=== PATIENT | male | born 1985 | race Caucasian/White ===

== ENCOUNTER 2017-02-26 10:20 | Emergency (ER) | payer MEDICAID ==
[~2017-02-26] VITALS: Ht 170.2 cm; Wt 77.0 kg
[2017-02-26 10:23] VITALS: Ht 170.2 cm; Wt 77.0 kg
[2017-02-26] MEDS ORDERED: IBUP-1542 PO (11:47)
[2017-02-26] MEDS ORDERED: IBUPROFEN 600 MG TAB PO ONE (12:00)
[2017-02-26 12:20] VITALS: BP 145/75; PULSE 80; RESP 18; TEMP 98
--- NOTE | 2017-02-26 17:24 | ERD ---
ER Documentation Chief Complaint Date/Time DATE: 02/26/17 TIME: 17:10 Chief Complaint rt elbow pain x 1 week , no trauma HPI This is a 31-year-old male with a medical history of CHF who presents to the ED with right arm pain for 1 week associated with decreased range of motion. Denies any trauma. Denies fever, numbness, tingling, cough, chest pain , shortness of breath. Patient did not take any medications for symptom relief. No recent sick contacts or foreign travel. ROS All systems reviewed and are negative except as per history of present illness. Medications Home Meds Active Scripts Ibuprofen* (Motrin*) 600 Mg Tab, 600 MG PO Q6, #30 TAB Prov:CHANELL CEVALLOS 02/26/17 Allergies Allergies: Coded Allergies: No Known Allergy (Unverified , 02/26/17) PMhx/Soc Medical and Surgical Hx: pt denies Surgical Hx Hx Cardiac Disorders: Yes (HEART FAILURE) Hx Alcohol Use: No Hx Substance Use: No Hx Tobacco Use: No Smoking Status: Former smoker Physical Exam Vitals Vital Signs Date Time Temp Pulse Resp B/P Pulse Ox O2 Delivery O2 Flow Rate FiO2 02/26/17 12:20 98.0 80 18 145/75 100 Room Air 02/26/17 10:23 97.3 110 18 172/89 99 Physical Exam Physical Exam CONST: Well-developed, well-nourished, in no acute distress. Nontoxic in appearance. HEENT: Atraumatic. Normal conjunctiva. EOM intact. TM intact. External ear is normal. Clear oropharnyx without erythema. No uvular deviation. Moist mucous membranes. Supple neck. No meningismus. No submandibular induration. RESP: Clear to auscultation bilaterally. No wheezing. CARDIO: Regular rate and rhythm, no murmurs. ABD: Soft, non tender, non distended. Normal bowel sounds. No McBurney's point tenderness. No guarding or rigidity. No peritoneal signs. SKIN: No rashes, induration or erythema on the right forearm. BACK: No midline or flank tenderness. EXT: Tenderness on the lateral proximal right forearm. Decreased right hand flexion, wrist flexion and elbow ROM due to pain. no cyanosis or edema. Distal pulses equal and bilateral. NEURO: Awake and alert, appropriate for age. Normal speech. Steady gait. Results 24 hrs Current Medications Medications (Trade) Dose Ordered Sig/Mic Route PRN Reason Start Time Stop Time Status Last Admin Dose Admin Ibuprofen (Motrin) 600 mg ONCE ONCE PO 02/26/17 12:00 02/26/17 12:01 DC 02/26/17 11:53 Procedures/MDM EMERGENCY DEPARTMENT COURSE/MEDICAL DECISION MAKING This is a 31-year-old male who comes to the emergency room secondary to complaints of nontraumatic right forearm pain 1 week. Patient is afebrile and appears nontoxic. I believe a radiographic study is unnecessary because there is no involved trauma. Physical exam shows decreased right finger and wrist flexion and elbow ROM. Skin assessment is normal. I believe the physical findings might suggest tendonitis and I will NSAIDS and pt needs a medical program specialist referral. My primary diagnosis is tendinitis. Secondary diagnosis right arm pain Differential diagnoses considered but not limited to fracture, foreign body, cellulitis, bursitis, arthritis. Pt is hemodynamically stable upon reassessment. There are no new complaints during the ED course. The patient was discharged for outpatient management with a prescription for ibuprofen. The patient was instructed to see an medical program specialist and a referral list was given. The patient was advised to followup with their PMD in 1 -2 days and to return to the Emergency Department if there are any new or worsening symptoms. The patient understood and agreed with the diagnosis, treatment and plan. Patient is stable for discharge at this time. Departure Diagnosis: Primary Impression: Tendonitis Additional Impression: Right arm pain Condition: Stable Patient Instructions: Tendonitis Referrals: [facility] Usted se clay hecho un examen mdico de control que le indica que no est en torrie condicin que requiera tratamiento urgente en el Departamento de Emergencia. Un estudio ms profundo y el tratamiento de ureña condicin pueden esperar sin ningn riesgo hasta que usted sea atendida/o en el consultorio de ureña mdico o torrie cl alicia. Es responsabilidad suya arreglar torrie kaushal para el seguimiento del inocencio. MANEJO DE CONDICIONES NO URGENTES EN EL FUTURO 1) Si usted tiene un mdico de atencin primaria: Usted debera llamar a ureña mdico de atencin primaria antes de venir al departamento de emergencia. Despus de las horas de consultorio, ureña doctor o ureña asociado/a est disponible por telfono. El mdico o enfermero de padmini en el servicio telefnico puede asesorarle por shira medio para atender el problema, o inocencio contrario se puede programar torrie kaushal. 2) Si usted no tiene un mdico de atencin primaria: Llame al mdico o clnica de referencia que aparece abajo [place] las horas de consultorio para hacer torrie kaushal para que le vean. CLINICAS: [place] [address] [phone] [facility] [phone] [place] [address] [phone] [place] [address] [phone] [place] [address] [phone] [place] [phone] [facility] Urgent Care 7 a.m.- 11 p.m. Every Day of the Week NO APPOINTMENT OR AUTHORIZATION NEEDED Additional Instructions: aplicar hielo sobre la maciel afectada seguimiento con un especialista en ortopedia. Llame a ureña mdico de atencin primaria maana para hacer torrie kaushal [place] los pr ximos richards 1-2. Volver al Departamento de la emergencia inmediatamente si tiene cualquier s ntoma nuevo o que empeora. [place] todos los medicamentos bibiana lo indique. CHANELL CEVALLOS February 26, 2017 17:23
== END 2017-02-26 12:21 | disposition home or self-care (01) ==
LOC: FTE 10:20
DX: M77.9 Enthesopathy, unspecified (principal); M79.601 Pain in right arm; I50.9 Heart failure, unspecified; Z87.891 Personal history of nicotine dependence
CPT/HCPCS: 99283

== ENCOUNTER 2017-10-21 20:11 | Emergency (ER) | END 2017-10-22 17:50 | disposition home or self-care (01) ==

== ENCOUNTER 2017-11-04 10:35 | Emergency (ER) | END 2017-11-04 20:20 | disposition home or self-care (01) ==

== ENCOUNTER 2017-11-06 13:10 | Inpatient (IN) | END 2017-11-09 12:51 | disposition home or self-care (01) | DRG 152 ==

== ENCOUNTER 2018-08-14 19:32 | Emergency (ER) | END 2018-08-15 00:17 | disposition home or self-care (01) ==

== ENCOUNTER 2018-09-17 14:55 | Emergency (ER) | END 2018-09-17 17:06 | disposition home or self-care (01) ==

== ENCOUNTER 2018-10-25 21:49 | Emergency (ER) | payer MEDICAID ==
[~2018-10-25] VITALS: Wt 79.0 kg
[~2018-10-25 21:49] MED LIST: ACET500T98 PO; BENA20TA4 PO; CARV25TA79 PO; D-ME118S24 PO; FURO40TA4 PO
[2018-10-25] MEDS ORDERED: ALBUTEROL 0.083% (NEB) 2.5 MG/3 ML AMP NEB STA (23:49)
[2018-10-25] MEDS ORDERED: IPRATROPIUM (NEB) 0.5 MG/2.5 ML AMP NEB STA (23:49)
--- NOTE | 2018-10-26 00:11 | ERD ---
ER Documentation Chief Complaint Chief Complaint SOB, CONGESTION X'S 5 DAYS HPI This is a 33-year-old male with a history of congestive heart failure who presents ED for cough and flulike symptoms for the past 5 days. Patient admits to subjective fevers, runny nose, cough with green sputum production and shortness of breath. Denies chills, ear pain, sore throat, chest pain, trouble breathing, nausea, vomiting, diarrhea, constipation. 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 Patient states that he has not used methamphetamine in over a year. Patient is unsure what his ejection fraction is. Patient states that he has a appointment scheduled with his systems integration advisor at all of the in the next couple weeks. Denies leg swelling. ROS All systems reviewed and are negative except as per history of present illness. Medications Home Meds Active Scripts Dextromethorphan Hb-Promethazine Hcl* (Promethazine DM* Syrup) 473 Ml Syrup, 5 ML PO Q6 PRN for COUGH for 5 Days, ML Prov:KAYLEE GILLIS PA-C 10/26/18 Levofloxacin* (Levaquin*) 750 Mg Tablet, 750 MG PO DAILY for 5 Days, TAB Prov:KAYLEE GILLIS PA-C 10/26/18 D-Methorphan Hb/P-Epd HCl/Bpm (Aqclcrsrmt-Djwmouvlktr-Db Syr) 118 Ml Syrup, 5 ML PO Q4 PRN for COUGH, #1 BOTTLE Prov:AUDIE PUGH DO 09/17/18 Acetaminophen (Tylenol) 500 Mg Tab, 500 MG PO Q6 for fever/pain for 30 Days, TAB Prov:AUDIE PUGH DO 09/17/18 Reported Medications Carvedilol* (Carvedilol*) 25 Mg Tablet, 25 MG PO BID, #60 TAB 08/14/18 Furosemide* (Furosemide*) 40 Mg Tablet, 40 MG PO DAILY, TAB 08/14/18 Benazepril Hcl* (Benazepril Hcl*) 20 Mg Tablet, 20 MG PO DAILY, #30 TAB 08/14/18 Allergies Allergies: Coded Allergies: No Known Allergy (Unverified , 08/14/18) PMhx/Soc History of Surgery: No Anesthesia Reaction: No Hx Neurological Disorder: No Hx Respiratory Disorders: Yes (Bronchitis) Hx Cardiac Disorders: Yes (CHF, HTN) Hx Psychiatric Problems: No Hx Miscellaneous Medical Probl: Yes (inguinal hernia) Hx Alcohol Use: Yes (occasionally) Hx Substance Use: Yes (ex-meth used,quit 2012) Hx Tobacco Use: Yes (quit 2003) Smoking Status: Former smoker FmHx Family History: No diabetes Physical Exam Vitals Vital Signs Date Temp Pulse Resp B/P (MAP) Pulse Ox O2 O2 Flow FiO2 Time Delivery Rate 10/26/18 98.8 109 18 140/88 99 Room Air 01:43 (105) 10/26/18 112 26 98 21 00:10 10/26/18 Simple 00:00 Mask 10/25/18 97.2 121 18 170/97 100 21:53 (121) Physical Exam Physical Exam Vitals signs: Reviewed by me. General: Well developed, well nourished, in no acute distress. Patient is awake and alert. Head: Normocephalic, atraumatic. Eyes: Normal conjunctiva, Pupils PERRLA, EOM intact grossly ENT: Pharynx is clear, Moist mucous membranes, external ears, nose and mouth normal Neck: Supple, no masses, lymphadenopathy or JVD Respiratory: Coarse breath sounds in anterior upper chest, otherwise clear to auscultation bilaterally with no wheezing, rhonchi, rales, no distress Cardiovascular: RRR, no murmurs, rubs, or gallops MSK: No edema, no unilateral swelling, 5/5 strength Back: No midline tenderness. No flank tenderness Neurologic: Alert and oriented, moving all extremities, normal speech, no focal weakness, no cerebellar signs. Normal mentation Skin: warm and dry, No rash Psych: Normal mood Results 24 hrs Current Medications Medications Dose Sig/Mic Start Time Status Last (Trade) Ordered Route PRN Stop Time Admin Dose Reason Admin Albuterol 5 mg ONCE STAT 10/25/18 DC 10/26/18 (Proventil NEB 23:49 10/25/18 00:09 0.083% (Neb)) 23:50 Ipratropium 0.5 mg ONCE STAT 10/25/18 DC 10/26/18 Guinda NEB 23:49 10/25/18 00:09 (Atrovent 23:50 0.02% (Neb)) Procedures/MDM EKG, MONITORS, & DIAGNOSTIC IMAGING: [place] [id number] Radiology Main Line: [phone] DIAGNOSTIC IMAGING REPORT Patient: TESS KIM : 1985 Age: 33 Sex: M MR #: [id number] DOS: 10/25/18 2349 Ordering MD: KAYLEE GILLIS PA-C Location: [facility] Room/Bed: PROCEDURE: XR Chest. CLINICAL INDICATION: Asthma exacerbation. TECHNIQUE: Single portable view of the chest was obtained COMPARISON: DR SEE 09/17/2018 FINDINGS: Stable enlargement of the cardiac silhouette. Central pulmonary vessels are enlarged and there are increased interstitial lung markings in both lower lungs, right more than left. This has increased compared to the prior study. There is no focal airspace consolidation or evidence of pulmonary vascular congestion. There is no pleural effusion or pneumothorax. The visualized osseous structures and soft tissues are unremarkable. IMPRESSION: 1. Increased interstitial lung markings at the lower aspects of the lungs bilaterally along with enlarged central pulmonary vessels could represent interstitial edema. 2. Marked cardiomegaly is unchanged from prior studies. RPTAT: HEUY. Physician margarito Date Time Electronically viewed and signed by melissa lama Physician on 10/26/2018 01:02 ry/ CC: KAYLEE GILLIS PA-C [phone] PROCEDURES: influenza negative ER COURSE: The patient was given breathing treatment in the ED The medication was well tolerated and the patient reports improvement in symptoms. The patient was stable throughout ED course. I kept the patient and/or family informed of laboratory and diagnostic imaging results throughout the emergency room course. The patient was promptly evaluated and a treatment plan was devised based on H&P and other data. This plan was discussed with the patient who agreed and had no further questions or concerns prior to discharge. MEDICAL DECISION MAKING: This is a 33-year-old male with a history of congestive heart failure who presents ED with complaints of cough for the past 2 days. Differential diagnosi s includes but is not limited to CHF exacerbation, upper respiratory infection, pneumonia, sepsis, bronchitis, among others. On examination there is some coarse breath sounds heard in the anterior upper lungs but is otherwise unremarkable. Patient was given a breathing treatment in the ED and reports feeling better. Chest x-ray is unremarkable for pneumonia. And on physical exa m there is no extremity edema, elevated JVD to suggest CHF exacerbation. Influenza is negative. Patient's symptoms are most consistent with an acute bronchitis. Patient will be sent home with antibiotics and cough medication. Patient has an appointment with his systems integration advisor next couple weeks. At this time there is no evidence of pulmonary emergency. Vitals are stable patient can be managed close outpatient follow-up. Advised patient to return to ED with any worsening symptoms. Discussed case with overseeing physician Dr. KWOK AND HE AGREES THAT patient can be managed with close outpatient follow up DISPOSITION PLAN: We discussed follow up with the patient's primary care doctor within 24 to 48 hours. Patient counseled regarding my diagnostic impression and care plan. Prior to discharge all questions answered. Pt agrees with treatment plan and understands strict return precautions. Precautionary instructions provided including instructions to return to the ER if not improving or for any worsening or changing symptoms or concerns. SPECIALIST FOLLOW UP RECOMMENDED: None Patient has been advised to follow up with primary care in 1-2 days. Disclaimer: Inadvertent spelling and grammatical errors are likely due to EHR/dictation software use and do not reflect on the overall quality of patient care. Also, please note that the electronic time recorded on this note does not necessarily reflect the actual time of the patient encounter. Departure Diagnosis: Primary Impression: Acute bronchitis Bronchitis organism: unspecified organism Qualified Codes: J20.9 - Acute bronchitis, unspecified Condition: Stable Patient Instructions: Acute Bronchitis, Bronchitis, Antiobiotic Treatment (Adult) Referrals: [facility] Additional Instructions: Patient advised to return to the ED immediately for new or worsening symptoms. Patient advised to follow up with primary care provider in the next 24-48 hours. Patient verbalized understanding and agrees with treatment plan and course of action. If patient has no primary care they may follow up with one of the community clinics listed on the following page or one of the options listed below [facility] + [address] [phone] or [facility] [id number] [place] [phone] or [facility] [address] [place] [address] KAYLEE GILLIS PA-C Oct 26, 2018 00:11
[2018-10-26] MEDS ORDERED: LEVO750T25 PO (01:14)
[2018-10-26] MEDS ORDERED: D-ME473S2 PO (01:15)
[2018-10-26 01:43] VITALS: BP 140/88; PULSE 109; RESP 18
== END 2018-10-26 01:47 | disposition home or self-care (01) ==
LOC: FTE 21:49
DX: J20.9 Acute bronchitis, unspecified (principal); I50.9 Heart failure, unspecified; I11.0 Hypertensive heart disease with heart failure; Z87.891 Personal history of nicotine dependence
CPT/HCPCS: 71045; 87400; 94664; Z7502; Z7610

== ENCOUNTER 2018-12-11 19:00 | Inpatient (IN) | payer MEDICAID ==
[~2018-12-11] VITALS: Ht 167.6 cm; Wt 79.3 kg
[~2018-12-11 19:00] MED LIST changes: +D-ME473S2 PO; +LEVO750T25 PO
[2018-12-11] MEDS ORDERED: FUROSEMIDE 40 MG INJ IV STA (23:36)
[2018-12-12] VITALS (9 sets, daily range): BP systolic 108–148; BP diastolic 64–106; PULSE 91–113; RESP 18–21; Ht 167.6 cm; Wt 79.3 kg
--- NOTE | 2018-12-12 04:02 | ERD ---
ER Documentation Chief Complaint Chief Complaint [place]. feet swelling today. hx heart failure, denies sob. clear lung sounds HPI This is a 33-year-old male bilateral feet swelling today that is gotten progressively worse. He has a history of heart failure. Initially he denies shortness of breath, however he states he is more short of breath today. He is also getting more short of breath over the past few hours. Denies any britni chest pain. Denies nausea vomiting fevers or chills. Denies any other current issues. ROS All systems reviewed and are negative except as per history of present illness. Medications Home Meds Reported Medications Carvedilol* (Carvedilol*) 25 Mg Tablet, 25 MG PO BID, #60 TAB 08/14/18 Furosemide* (Furosemide*) 40 Mg Tablet, 40 MG PO DAILY, TAB 08/14/18 Benazepril Hcl* (Benazepril Hcl*) 20 Mg Tablet, 20 MG PO DAILY, #30 TAB 08/14/18 Discontinued Scripts Dextromethorphan Hb-Promethazine Hcl* (Promethazine DM* Syrup) 473 Ml Syrup, 5 ML PO Q6 PRN for COUGH for 5 Days, ML Prov:KAYLEE GILLIS PA-C 10/26/18 Levofloxacin* (Levaquin*) 750 Mg Tablet, 750 MG PO DAILY for 5 Days, TAB Prov:KAYLEE GILLIS PA-C 10/26/18 D-Methorphan Hb/P-Epd HCl/Bpm (Qjcsuptosn-Cxncvhyutjr-Be Syr) 118 Ml Syrup, 5 ML PO Q4 PRN for COUGH, #1 BOTTLE Prov:AUDIE PUGH DO 09/17/18 Acetaminophen (Tylenol) 500 Mg Tab, 500 MG PO Q6 for fever/pain for 30 Days, TAB Prov:AUDIE PUGH DO 09/17/18 Allergies Allergies: Coded Allergies: No Known Allergy (Unverified , 12/11/18) PMhx/Soc History of Surgery: No Anesthesia Reaction: No Hx Neurological Disorder: No Hx Respiratory Disorders: Yes (URI) Hx Cardiac Disorders: Yes (CHF,HTN) Hx Psychiatric Problems: No Hx Miscellaneous Medical Probl: Yes (Inguinal Hernia) Hx Alcohol Use: Yes (Social) Hx Substance Use: Yes (Formerly Meth Usage,quit 2012) Hx Tobacco Use: Yes (Quit 2013) Smoking Status: Former smoker Physical Exam Vitals Vital Signs Date Temp Pulse Resp B/P (MAP) Pulse Ox O2 O2 Flow FiO2 Time Delivery Rate 12/12/18 117 22 141/116 99 Room Air 00:54 (124) 12/12/18 119 22 150/102 100 Room Air 00:07 (118) 12/11/18 99.0 119 20 154/95 100 19:51 (114) Physical Exam Const: No acute distress Head: Atraumatic Eyes: Normal Conjunctiva ENT: Normal External Ears, Nose and Mouth. Neck: Full range of motion. No meningismus. Resp: Clear to auscultation bilaterally Cardio: Regular rate and rhythm, no murmurs Abd: Soft, non tender, non distended. Normal bowel sounds Skin: No petechiae or rashes Back: No midline or flank tenderness Ext: 3+ pitting edema bilaterally to the midcalf Neur: Awake and alert Psych: Normal Mood and Affect Result Diagram: 12/11/180 12/11/18 2350 Results 24 hrs Laboratory Tests Test 12/11/18 23:50 White Blood Count 6.8 10^3/ul Red Blood Count 4.36 10^6/ul Hemoglobin 13.8 g/dl Hematocrit 42.8 % Mean Corpuscular Volume 98.2 fl Mean Corpuscular Hemoglobin 31.7 pg Mean Corpuscular Hemoglobin Concent 32.2 g/dl Red Cell Distribution Width 15.0 % Platelet Count 346 10^3/UL Mean Platelet Volume 8.8 fl Immature Granulocytes % 0.400 % Neutrophils % 63.1 % Lymphocytes % 20.7 % Monocytes % 12.2 % Eosinophils % 2.9 % Basophils % 0.7 % Nucleated Red Blood Cells % 0.0 /100WBC Immature Granulocytes # 0.030 10^3/ul Neutrophils # 4.3 10^3/ul Lymphocytes # 1.4 10^3/ul Monocytes # 0.8 10^3/ul Eosinophils # 0.2 10^3/ul Basophils # 0.1 10^3/ul Nucleated Red Blood Cells # 0.0 10^3/ul Prothrombin Time 14.0 Sec Prothrombin Time Ratio 1.1 INR International Normalized Ratio 1.07 Activated Partial Thromboplast Time 26.7 Sec Sodium Level 138 mmol/L Potassium Level 3.4 mmol/L Chloride Level 100 mmol/L Carbon Dioxide Level 27 mmol/L Anion Gap 11 Blood Urea Nitrogen 18 mg/dl Creatinine 1.16 mg/dl Est Glomerular Filtrat Rate mL/min > 60 mL/min Glucose Level 84 mg/dl Calcium Level 8.9 mg/dl Total Bilirubin 0.9 mg/dl Direct Bilirubin 0.00 mg/dl Indirect Bilirubin 0.9 mg/dl Aspartate Amino Transf (AST/SGOT) 68 IU/L Alanine Aminotransferase (ALT/SGPT) 57 IU/L Alkaline Phosphatase 138 IU/L Troponin I 0.090 ng/ml B-Type Natriuretic Peptide 2970 PG/ML Total Protein 6.6 g/dl Albumin 3.4 g/dl Globulin 3.20 g/dl Albumin/Globulin Ratio 1.06 Lipase 53 U/L Current Medications Medications Dose Sig/Mic Start Time Status Last (Trade) Ordered Route PRN Stop Time Admin Dose Reason Admin Furosemide 40 mg ONCE STAT 12/11/18 DC 12/12/18 (Lasix) IV 23:36 00:03 12/11/18 23:37 Procedures/MDM Emergency department course: Patient seen and evaluated by triage nurse. Placed in the ER bed. Evaluated by MD. Intravenous access established. Lasix given. EKG: Rate/Rhythm: [Normal Sinus Rhythm] QRS, ST, T-waves: [No changes consistent w/ acute ischemia] Impression: [No evidence of ischemia or arrhythmia] Chest X-ray 1V Interpreted by me: Soft Tissue: No acute abnormalities Bones: No acute abnormalities Mediastinum/Cardiac Silhouette/Lungs: Cardiomegaly. Interstitial fluid markings. Impression: CHF Medical decision making: Patient's heart failure symptoms is concerning for acute decompensation and will require inpatient workup and monitoring. Further w/u for ischemia, arrhythmia, PE or dissection will be deferred to the inpatient team. Accepting Care Team: Current data and ongoing care discussed. Time: 2 AM Primary Provider: Hospitalist Consulting: Deferred to inpatient team Outstanding Data: none Departure Diagnosis: Primary Impression: CHF (congestive heart failure) Heart failure type: unspecified Heart failure chronicity: unspecified Qualified Codes: I50.9 - Heart failure, unspecified Condition: Serious SARA KWOK Dec 12, 2018 04:02
--- NOTE | 2018-12-12 06:48 | HP ---
Date/Time of Note Date/Time of Note DATE: 12/12/18 TIME: 06:46 Assessment/Plan VTE Prophylaxis Pharmacological prophylaxis: heparin Lines/Catheters IV Catheter Type (from Nrs): Peripheral IV Assessment/Plan Assessment/Plan 33-year-old male with history of cardiomyopathy with systolic dysfunction, EF 35% in 10/2017 here with worsening lower extremity edema and shortness of breath, secondary to chronic systolic CHF PLAN Will diuresis with IV Lasix Monitor urine output Continue beta-rukhsana and ACEI Cardiology consult Result Diagram: 12/11/18 2350 12/11/18 2350 Results 24hrs Laboratory Tests Test 12/11/18 23:50 White Blood Count 6.8 Red Blood Count 4.36 L Hemoglobin 13.8 L Hematocrit 42.8 Mean Corpuscular Volume 98.2 Mean Corpuscular Hemoglobin 31.7 Mean Corpuscular Hemoglobin Concent 32.2 Red Cell Distribution Width 15.0 H Platelet Count 346 # Mean Platelet Volume 8.8 Immature Granulocytes % 0.400 Neutrophils % 63.1 Lymphocytes % 20.7 Monocytes % 12.2 H Eosinophils % 2.9 Basophils % 0.7 Nucleated Red Blood Cells % 0.0 Immature Granulocytes # 0.030 Neutrophils # 4.3 Lymphocytes # 1.4 Monocytes # 0.8 Eosinophils # 0.2 Basophils # 0.1 Nucleated Red Blood Cells # 0.0 Prothrombin Time 14.0 Prothrombin Time Ratio 1.1 INR International Normalized Ratio 1.07 Activated Partial Thromboplast Time 26.7 Sodium Level 138 Potassium Level 3.4 L Chloride Level 100 Carbon Dioxide Level 27 Anion Gap 11 Blood Urea Nitrogen 18 Creatinine 1.16 Est Glomerular Filtrat Rate mL/min > 60 Glucose Level 84 Calcium Level 8.9 Total Bilirubin 0.9 Direct Bilirubin 0.00 Indirect Bilirubin 0.9 Aspartate Amino Transf (AST/SGOT) 68 H Alanine Aminotransferase (ALT/SGPT) 57 Alkaline Phosphatase 138 H Troponin I 0.090 B-Type Natriuretic Peptide 2970 H Total Protein 6.6 Albumin 3.4 Globulin 3.20 Albumin/Globulin Ratio 1.06 Lipase 53 HPI/ROS Admit Date/Time Admit Date/Time Hx of Present Illness This is a 33-year-old male with a history of cardiomyopathy with systolic dysfunction (EF 35% in 10/2017). Patient presents the ER complaining of worsening lower extremity edema and shortness of breath. He has not been always compliant with his Lasix. When he presented to ER, chest x-ray shows moderate cardiomegaly and mild pulmonary vascular congestion. Patient was last admitted here for similar symptoms in October of last year. PMH/Family/Social Past Medical History Coded Allergies: No Known Allergy (Unverified , 12/11/18) Past Surgical History Past Surgical Hx: no surgical history Family History Significant Family History: no pertinent family hx Social History Smoking Status: Former smoker Exam/Review of Systems Vital Signs Vitals Vital Signs Date Temp Pulse Resp B/P (MAP) Pulse Ox O2 O2 Flow FiO2 Time Delivery Rate 12/12/18 111 16 153/116 97 Room Air 05:01 (128) 12/11/18 99.0 19:51 Exam Exam Past Surgical History Past Surgical Hx: other (see hpi) Family History Significant Family History: no pertinent family hx Social History Alcohol Use: other Smoking Status: Unknown if ever smoked Drug Use: none, other Exam Constitutional: other (no acute distress) Head: normocephalic, atraumatic Eyes: PERRL Respiratory: clear to auscultation Cardiovascular: regular rate and rhythm Gastrointestinal: soft SARA BOOTH MD Dec 12, 2018 06:48
[2018-12-12] MEDS ORDERED: NITROGLYCERIN (SL) 0.4 MG TAB SL PRN (07:00)
[2018-12-12] MEDS ORDERED: NACL 0.9% 3 ML SYG IV SCH (07:00)
[2018-12-12] MEDS ORDERED: ACETAMINOPHEN 325 MG TAB PO PRN (07:00)
[2018-12-12] MEDS ORDERED: ALBUTEROL/IPRATROPIUM (NEB) 3 ML AMP HHN PRN (07:00)
[2018-12-12] MEDS ORDERED: ONDANSETRON 4 MG INJ IV PRN (07:00)
[2018-12-12] MEDS: BENAZEPRIL 20 MG TAB PO SCH (08:53)
[2018-12-12] MEDS: FUROSEMIDE 40 MG INJ IV SCH (08:54)
[2018-12-12] MEDS: HEPARIN 5,000 UNIT/1 ML VIAL SC SCH ×2 (09:05→21:01)
--- NOTE | 2018-12-12 11:36 | PN ---
Date/Time of Note Date/Time of Note DATE: 12/12/18 TIME: 11:34 Assessment/Plan VTE Prophylaxis Risk score (from Ns)>0 risk: 1 SCD applied (from [facility] [place]): No SCD contraindicated: other Pharmacological prophylaxis: heparin Lines/Catheters IV Catheter Type (from [facility]): Saline Lock Urinary Cath still in place: No Assessment/Plan Hospital Course S: No acute events overnight. O: VS - see below PE: Gen: lying in bed, No acute distress Head: Atraumatic Eyes: Normal Conjunctiva ENT: Normal External Ears, Nose and Mouth. Neck: Full range of motion. No meningismus. Resp: Clear to auscultation bilaterally Cardio: Regular rate and rhythm, no murmurs Abd: Soft, non tender, non distended. Normal bowel sounds Skin: No petechiae or rashes Back: No midline or flank tenderness Ext: 2+ pitting edema bilaterally to the midcalf Neur: Awake and alert Psych: Normal Mood and Affect Assessment/Plan: 33-year-old male with history of cardiomyopathy with systolic dysfunction, EF 35% in 10/2017 here with worsening lower extremity edema and shortness of breath, secondary to chronic systolic CHF. PLAN Continue diuresis with IV Lasix, keep head of bed greater than 30 degrees Monitor urine output Continue low-dose beta-rukhsana, JESSICA inhibitor We will order echocardiogram, last echo was performed 1 year ago October 2017, consider cardiology consult We will also get PT eval Patient counseled on cessation of both drug use and smoking, former user of both. Result Diagram: 12/12/18 0749 12/12/18 0749 Results 24hrs Laboratory Tests Test 12/11/18 23:50 12/12/18 07:49 12/12/18 07:50 White Blood Count 6.8 8.3 # Red Blood Count 4.36 L 4.34 L Hemoglobin 13.8 L 14.0 Hematocrit 42.8 42.7 Mean Corpuscular Volume 98.2 98.4 Mean Corpuscular Hemoglobin 31.7 32.3 Mean Corpuscular Hemoglobin Concent 32.2 32.8 Red Cell Distribution Width 15.0 H 15.1 H Platelet Count 346 # 324 Mean Platelet Volume 8.8 8.8 Immature Granulocytes % 0.400 0.400 Neutrophils % 63.1 75.8 Lymphocytes % 20.7 12.2 L Monocytes % 12.2 H 8.8 Eosinophils % 2.9 2.1 Basophils % 0.7 0.7 Nucleated Red Blood Cells % 0.0 0.0 Immature Granulocytes # 0.030 0.030 Neutrophils # 4.3 6.3 Lymphocytes # 1.4 1.0 Monocytes # 0.8 0.7 Eosinophils # 0.2 0.2 Basophils # 0.1 0.1 Nucleated Red Blood Cells # 0.0 0.0 Prothrombin Time 14.0 Prothrombin Time Ratio 1.1 INR International Normalized Ratio 1.07 Activated Partial Thromboplast Time 26.7 Sodium Level 138 139 Potassium Level 3.4 L 3.6 Chloride Level 100 102 Carbon Dioxide Level 27 28 Anion Gap 11 9 Blood Urea Nitrogen 18 18 Creatinine 1.16 1.05 Est Glomerular Filtrat Rate mL/min > 60 > 60 Glucose Level 84 102 Calcium Level 8.9 9.0 Total Bilirubin 0.9 Direct Bilirubin 0.00 Indirect Bilirubin 0.9 Aspartate Amino Transf (AST/SGOT) 68 H Alanine Aminotransferase (ALT/SGPT) 57 Alkaline Phosphatase 138 H Troponin I 0.090 0.083 B-Type Natriuretic Peptide 2970 H Total Protein 6.6 Albumin 3.4 Globulin 3.20 Albumin/Globulin Ratio 1.06 Lipase 53 Triglycerides Level 67 Cholesterol Level 138 LDL Cholesterol, Calculated 88 HDL Cholesterol 37 Cholesterol/HDL Ratio 3.7 Thyroid Stimulating Hormone (TSH) 0.873 Hemoglobin A1c 5.7 Creatine Kinase 325 H Creatine Kinase Index 1.4 Creatinine Kinase MB (Mass) 4.71 H Exam/Review of Systems Exam Vitals Vital Signs Date Temp Pulse Resp B/P (MAP) Pulse Ox O2 O2 Flow FiO2 Time Delivery Rate 12/12/18 113 09:11 12/12/18 98.1 18 148/106 94 Room Air 09:00 (120) Results Results 24hrs Laboratory Tests Test 12/11/18 23:50 12/12/18 07:49 12/12/18 07:50 White Blood Count 6.8 8.3 # Red Blood Count 4.36 L 4.34 L Hemoglobin 13.8 L 14.0 Hematocrit 42.8 42.7 Mean Corpuscular Volume 98.2 98.4 Mean Corpuscular Hemoglobin 31.7 32.3 Mean Corpuscular Hemoglobin Concent 32.2 32.8 Red Cell Distribution Width 15.0 H 15.1 H Platelet Count 346 # 324 Mean Platelet Volume 8.8 8.8 Immature Granulocytes % 0.400 0.400 Neutrophils % 63.1 75.8 Lymphocytes % 20.7 12.2 L Monocytes % 12.2 H 8.8 Eosinophils % 2.9 2.1 Basophils % 0.7 0.7 Nucleated Red Blood Cells % 0.0 0.0 Immature Granulocytes # 0.030 0.030 Neutrophils # 4.3 6.3 Lymphocytes # 1.4 1.0 Monocytes # 0.8 0.7 Eosinophils # 0.2 0.2 Basophils # 0.1 0.1 Nucleated Red Blood Cells # 0.0 0.0 Prothrombin Time 14.0 Prothrombin Time Ratio 1.1 INR International Normalized Ratio 1.07 Activated Partial Thromboplast Time 26.7 Sodium Level 138 139 Potassium Level 3.4 L 3.6 Chloride Level 100 102 Carbon Dioxide Level 27 28 Anion Gap 11 9 Blood Urea Nitrogen 18 18 Creatinine 1.16 1.05 Est Glomerular Filtrat Rate mL/min > 60 > 60 Glucose Level 84 102 Calcium Level 8.9 9.0 Total Bilirubin 0.9 Direct Bilirubin 0.00 Indirect Bilirubin 0.9 Aspartate Amino Transf (AST/SGOT) 68 H Alanine Aminotransferase (ALT/SGPT) 57 Alkaline Phosphatase 138 H Troponin I 0.090 0.083 B-Type Natriuretic Peptide 2970 H Total Protein 6.6 Albumin 3.4 Globulin 3.20 Albumin/Globulin Ratio 1.06 Lipase 53 Triglycerides Level 67 Cholesterol Level 138 LDL Cholesterol, Calculated 88 HDL Cholesterol 37 Cholesterol/HDL Ratio 3.7 Thyroid Stimulating Hormone (TSH) 0.873 Hemoglobin A1c 5.7 Creatine Kinase 325 H Creatine Kinase Index 1.4 Creatinine Kinase MB (Mass) 4.71 H Medications Medication Current Medications IV Flush (NS 3 ml) 3 ml PER PROTOCOL IV ; Start 12/12/18 at 07:00 Ondansetron HCl (Zofran Inj) 4 mg Q6H PRN IV NAUSEA/VOMITING; Start 12/12/18 at 07:00 Furosemide (Lasix) 40 mg DAILY IV Last administered on 12/12/18at 08:54; Admin Dose 40 MG; Start 12/12/18 at 09:00 Nitroglycerin (Nitroglycerin (Sl Tab) 0.4 Mg) 1 tab Q5M PRN SL .CHEST PAIN; Start 12/12/18 at 07:00 Acetaminophen (Tylenol Tab) 650 mg Q6H PRN PO .PAIN 1-3 OR TEMP; Start 12/12/18 at 07:00 Heparin Sodium (Porcine) (Heparin (5000 Units/1ml)) 5,000 unit Q12 SC Last administered on 12/12/18at 09:05; Admin Dose 5,000 UNIT; Start 12/12/18 at 09:00 Albuterol/ Ipratropium (Duoneb) 3 ml Q2H RESP THERAPY PRN HHN SHORTNESS OF BR EATH; Start 12/12/18 at 07:00 Benazepril HCl (Lotensin) 20 mg DAILY PO Last administered on 12/12/18at 08:53; Admin Dose 20 MG; Start 12/12/18 at 09:00 Carvedilol (Coreg) 25 mg BID PO Last administered on 12/12/18at 08:53; Admin Dose 25 MG; Start 12/12/18 at 09:00 CLAYTON RUIZ Dec 12, 2018 11:36
--- NOTE | 2018-12-12 14:26 | RADRPT ---
Echocardiogram Report Patient Name: TESS KIMPatient ID: [id number] : 1985 (33y 9m)Study Date: 12/12/2018 12:26:52 PM Gender: MAccession #: [id number] Tech: Location: Ref.Physician: CLAYTON RUIZ Height(Cm): BSA: Weight(Kg): Quality: AdequateAccount #: Procedures: Echocardiographic Report: Transthoracic echocardiogram with complete 2D, M-Mode, and doppler examination. Indications: Cardiomyopathy. Measurements: 2D/M Mode Doppler Measurement Value Normal Range Measurement Value Normal Range LVIDd 2D 6.0 [ 4.2 - 5.8 ] cm AV Peak Gilbert 1.1 [ 100.0 - 170.0 ] cm/sec LVIDs 2D 5.2 [ 2.5 - 4.0 ] cm AV Peak PG 5.0 [ 2.0 - 9.0 ] mmHg LVPWd 2D 1.3 [ 0.6 - 1.0 ] cm LVOT Peak Gilbert 0.8 [ 70.0 - 110.0 ] cm/sec IVSd 2D 1.2 [ 0.6 - 1.0 ] cm LVOT Peak PG 3.0 [ 2.0 - 6.0 ] mmHg AoR Diam 2D 2.9 [ 2.6 - 3.4 ] cm MV E Peak Gilbert 1.3 [ 60.0 - 130.0 ] cm/sec EDV 2D 179.0 [ 62.0 - 150.0 ] ml MV A Peak Gilbert 0.5 [ 100.0 - 120.0 ] cm/sec ESV 2D 130.0 [ 21.0 - 61.0 ] ml MV E/A 2.3 [ 0.8 - 1.5 ] ratio EF 2D 27.4 [ 52.0 - 72.0 ] percent MV Decel Time 169 [ 104 - 258 ] msec LA Dimen 2D 4.7 [ 3.0 - 4.0 ] cm Lat E` Gilbert 0.1 [ 10.0 - 15.0 ] cm/sec Lateral E/E` 14.3 [ 1.0 - 2.0 ] ratio MV E/A 2.3 [ 0.8 - 1.5 ] ratio TR Peak Gilbert 3.3 [ 100.0 - 280.0 ] cm/sec TR Peak PG 44.0 mmHg RVSP 52.0 [ 10.0 - 36.0 ] mmHg RA Pressure 8.0 mmHg Findings: Left Ventricle: Mild concentric left ventricular hypertrophy. Mild enlargement of left ventricle cavity. Severe global left ventricular systolic dysfunction. Ejection fraction is visually estimated at 30 %. Tissue Doppler/Mitral Doppler indices are consistent with restrictive physiology with markedly elevated left atrial pressure (Stage III-IV diastolic dysfunction). Right Ventricle: Normal right ventricular size. Normal right ventricular systolic function. Left Atrium: There is moderate enlargement of left atrium. Right Atrium: There is severe enlargement of right atrium. Mitral Valve: Mitral valve leaflets appear moderately thickened. Moderate to severe mitral valve regurgitation. The regurgitation jet is eccentrically directed which may underestimate the severity of mitral regurgitation. Aortic Valve: Normal appearance of the aortic valve. No significant aortic stenosis or insufficiency. Tricuspid Valve: Normal appearance of the tricuspid valve. Estimated peak PA systolic pressure 52 mmHg. There is moderate to severe tricuspid regurgitation. Pulmonic Valve: Pulmonic valve not well visualized. Pericardium: Normal pericardium with no significant pericardial effusion. Aorta: Normal aortic root. IVC: Dilated IVC with respiratory collapse consistent with elevated right atrial pressure. Conclusions: Dilated, moderately hypertrophied left ventricle with severely reduced left ventricular systolic function. Restrictive diastolic function. Moderate left atrial enlargement. Severe right atrial enlargement. Moderate-severe mitral regurgitation with a posterior directed jet. Moderate to severe tricuspid regurgitation with moderate pulmonary hypertension. Dilated IVC suggests elevated right atrial pressures. Electronically Signed By: Adrianna Earl 2018-12-12 14:26:19 PST
[2018-12-13] VITALS (11 sets, daily range): BP systolic 112–142; BP diastolic 73–93; PULSE 85–111; RESP 18–21
[2018-12-13] MEDS: BENAZEPRIL 20 MG TAB PO SCH (08:15)
[2018-12-13] MEDS: FUROSEMIDE 40 MG INJ IV SCH (08:16)
[2018-12-13] MEDS: HEPARIN 5,000 UNIT/1 ML VIAL SC SCH ×2 (08:20→21:04)
--- NOTE | 2018-12-13 10:59 | PN ---
Date/Time of Note Date/Time of Note DATE: 12/13/18 TIME: 10:57 Assessment/Plan VTE Prophylaxis Risk score (from [facility] [place])>0 risk: 1 SCD applied (from [facility] [place]): No SCD contraindicated: other Pharmacological prophylaxis: heparin Lines/Catheters IV Catheter Type (from [facility]): Saline Lock Urinary Cath still in place: No Assessment/Plan Hospital Course S: No acute events overnight. O: VS - see below PE: Gen: lying in bed, No acute distress Head: Atraumatic Eyes: Normal Conjunctiva ENT: Normal External Ears, Nose and Mouth. Neck: Full range of motion. No meningismus. Resp: Clear to auscultation bilaterally Cardio: Regular rate and rhythm, no murmurs Abd: Soft, non tender, non distended. Normal bowel sounds Skin: No petechiae or rashes Back: No midline or flank tenderness Ext: 2+ pitting edema bilaterally to the midcalf Neur: Awake and alert Psych: Normal Mood and Affect 2D ECHO 12/12/18: Conclusions: Dilated, moderately hypertrophied left ventricle with severely reduced left ventricular systolic function. Restrictive diastolic function. Moderate left atrial enlargement. Severe right atrial enlargement. Moderate-severe mitral regurgitation with a posterior directed jet. Moderate to severe tricuspid regurgitation with moderate pulmonary hypertension. Dilated IVC suggests elevated right atrial pressures. Assessment/Plan: 33-year-old male with history of cardiomyopathy with systolic dysfunction, here with worsening lower extremity edema and shortness of breath, secondary to chronic systolic CHF. PLAN Echo results noted from yesterday, EF now 30%, continue diuresis with IV Lasix, keep head of bed greater than 30 degrees Monitor urine output Continue low-dose beta-rukhsana, JESSICA inhibitor Consider PT eval Patient counseled on cessation of both drug use and smoking, former user of both. Result Diagram: 12/13/1837 12/13/18 0537 Results 24hrs Laboratory Tests Test 12/12/18 14:21 12/13/18 05:37 Creatine Kinase 226 H Creatine Kinase Index 1.4 Creatinine Kinase MB (Mass) 3.27 H Troponin I 0.054 White Blood Count 7.1 Red Blood Count 4.31 L Hemoglobin 13.9 L Hematocrit 42.6 Mean Corpuscular Volume 98.8 Mean Corpuscular Hemoglobin 32.3 Mean Corpuscular Hemoglobin Concent 32.6 Red Cell Distribution Width 14.9 H Platelet Count 364 Mean Platelet Volume 9.3 Immature Granulocytes % 0.400 Neutrophils % 67.6 Lymphocytes % 14.9 L Monocytes % 11.5 H Eosinophils % 5.0 Basophils % 0.6 Nucleated Red Blood Cells % 0.0 Immature Granulocytes # 0.030 Neutrophils # 4.8 Lymphocytes # 1.1 Monocytes # 0.8 Eosinophils # 0.4 Basophils # 0.0 Nucleated Red Blood Cells # 0.0 Sodium Level 139 Potassium Level 3.8 Chloride Level 105 Carbon Dioxide Level 27 Anion Gap 7 Blood Urea Nitrogen 21 H Creatinine 1.16 Est Glomerular Filtrat Rate mL/min > 60 Glucose Level 117 Calcium Level 9.1 Magnesium Level 1.9 Total Bilirubin 0.6 Direct Bilirubin 0.00 Indirect Bilirubin 0.6 Aspartate Amino Transf (AST/SGOT) 52 H Alanine Aminotransferase (ALT/SGPT) 47 Alkaline Phosphatase 144 H Total Protein 6.0 L Albumin 3.0 L Globulin 3.00 Albumin/Globulin Ratio 1.00 Exam/Review of Systems Exam Vitals Vital Signs Date Temp Pulse Resp B/P (MAP) Pulse Ox O2 O2 Flow FiO2 Time Delivery Rate 12/13/18 104 09:21 12/13/18 98.2 18 142/93 95 Room Air 07:47 (109) Intake and Output 12/12/18 12/12/18 12/13/18 1515:00 23:00 07:00 IntakeIntake Total 600 ml 200 ml OutputOutput Total 2200 ml 700 ml BalanceBalance -1600 ml -500 ml Results Results 24hrs Laboratory Tests Test 12/12/18 14:21 12/13/18 05:37 Creatine Kinase 226 H Creatine Kinase Index 1.4 Creatinine Kinase MB (Mass) 3.27 H Troponin I 0.054 White Blood Count 7.1 Red Blood Count 4.31 L Hemoglobin 13.9 L Hematocrit 42.6 Mean Corpuscular Volume 98.8 Mean Corpuscular Hemoglobin 32.3 Mean Corpuscular Hemoglobin Concent 32.6 Red Cell Distribution Width 14.9 H Platelet Count 364 Mean Platelet Volume 9.3 Immature Granulocytes % 0.400 Neutrophils % 67.6 Lymphocytes % 14.9 L Monocytes % 11.5 H Eosinophils % 5.0 Basophils % 0.6 Nucleated Red Blood Cells % 0.0 Immature Granulocytes # 0.030 Neutrophils # 4.8 Lymphocytes # 1.1 Monocytes # 0.8 Eosinophils # 0.4 Basophils # 0.0 Nucleated Red Blood Cells # 0.0 Sodium Level 139 Potassium Level 3.8 Chloride Level 105 Carbon Dioxide Level 27 Anion Gap 7 Blood Urea Nitrogen 21 H Creatinine 1.16 Est Glomerular Filtrat Rate mL/min > 60 Glucose Level 117 Calcium Level 9.1 Magnesium Level 1.9 Total Bilirubin 0.6 Direct Bilirubin 0.00 Indirect Bilirubin 0.6 Aspartate Amino Transf (AST/SGOT) 52 H Alanine Aminotransferase (ALT/SGPT) 47 Alkaline Phosphatase 144 H Total Protein 6.0 L Albumin 3.0 L Globulin 3.00 Albumin/Globulin Ratio 1.00 Medications Medication Current Medications IV Flush (NS 3 ml) 3 ml PER PROTOCOL IV ; Start 12/12/18 at 07:00 Ondansetron HCl (Zofran Inj) 4 mg Q6H PRN IV NAUSEA/VOMITING; Start 12/12/18 at 07:00 Furosemide (Lasix) 40 mg DAILY IV Last administered on 12/13/18 08:16; Admin Dose 40 MG; Start 12/12/18 at 09:00 Nitroglycerin (Nitroglycerin (Sl Tab) 0.4 Mg) 1 tab Q5M PRN SL .CHEST PAIN; Start 12/12/18 at 07:00 Acetaminophen (Tylenol Tab) 650 mg Q6H PRN PO .PAIN 1-3 OR TEMP; Start 12/12/18 at 07:00 Heparin Sodium (Porcine) (Heparin (5000 Units/1ml)) 5,000 unit Q12 SC Last administered on 12/13/18 08:20; Admin Dose 5,000 UNIT; Start 12/12/18 at 09:00 Albuterol/ Ipratropium (Duoneb) 3 ml Q2H RESP THERAPY PRN HHN SHORTNESS OF BREATH; Start 12/12/18 at 07:00 Benazepril HCl (Lotensin) 20 mg DAILY PO Last administered on 12/13/18 08:15; Admin Dose 20 MG; Start 12/12/18 at 09:00 Carvedilol (Coreg) 6.25 mg BID PO Last administered on 12/13/18 08:15; Admin Dose 6.25 MG; Start 12/12/18 at 21:00 CLAYTON RUIZ Dec 13, 2018 10:59
[2018-12-14] VITALS (13 sets, daily range): BP systolic 117–129; BP diastolic 60–83; PULSE 91–112; RESP 18–20
[2018-12-14] MEDS: BENAZEPRIL 20 MG TAB PO SCH (08:39)
[2018-12-14] MEDS: FUROSEMIDE 40 MG INJ IV SCH (08:40)
[2018-12-14] MEDS: HEPARIN 5,000 UNIT/1 ML VIAL SC SCH ×2 (08:49→21:44)
--- NOTE | 2018-12-14 11:03 | PN ---
Date/Time of Note Date/Time of Note DATE: 12/14/18 TIME: 11:01 Assessment/Plan VTE Prophylaxis Risk score (from Ns)>0 risk: 1 SCD applied (from [facility]s): No SCD contraindicated: other Pharmacological prophylaxis: heparin Lines/Catheters IV [facility]ter Type (from [facility] Saline Lock Urinary Cath still in place: No Assessment/Plan Hospital Course S: Patient says he is having less lower extremity swelling and less shortness of breath symptoms. Did have some 10 beats of V. tach last night, presently asymptomatic. O: VS - see below PE: Gen: lying in bed, No acute distress Head: Atraumatic Eyes: Normal Conjunctiva ENT: Normal External Ears, Nose and Mouth. Neck: Full range of motion. No meningismus. Resp: Clear to auscultation bilaterally Cardio: Regular rate and rhythm, no murmurs Abd: Soft, non tender, non distended. Normal bowel sounds Skin: No petechiae or rashes Back: No midline or flank tenderness Ext: 1+ pitting edema bilaterally to the ankles Neur: Awake and alert Psych: Normal Mood and Affect 2D ECHO 12/12/18: Conclusions: Dilated, moderately hypertrophied left ventricle with severely reduced left ventricular systolic function. Restrictive diastolic function. Moderate left atrial enlargement. Severe right atrial enlargement. Moderate-severe mitral regurgitation with a posterior directed jet. Moderate to severe tricuspid regurgitation with moderate pulmonary hypertension. Dilated IVC suggests elevated right atrial pressures. Assessment/Plan: 33-year-old male with history of cardiomyopathy with systolic dysfunction, here with worsening lower extremity edema and shortness of breath, secondary to chronic systolic CHF. PLAN Echo results noted from 2 days ago, EF now 30%, continue diuresis with IV Lasix, keep head of bed greater than 30 degrees Monitor urine output We will today put him back on his home dose of Coreg 25 mg twice daily, and to continue JESSICA inhibitor Follow-up recommendations from PT eval Patient counseled on cessation of both drug use and smoking, former user of both. Result Diagram: 12/13/18 0537 12/13/18 0537 Exam/Review of Systems Exam Vitals Vital Signs Date Temp Pulse Resp B/P (MAP) Pulse Ox O2 O2 Flow FiO2 Time Delivery Rate 12/14/18 112 08:02 12/14/18 98.1 129/73 04:36 (91) 12/14/18 20 95 00:16 12/13/18 Room Air 15:19 Intake and Output 12/13/18 12/13/18 12/14/18 1414:59 22:59 06:59 IntakeIntake Total 2000 ml 400 ml OutputOutput Total 2550 ml 1600 ml BalanceBalance -550 ml -1200 ml Medications Medication Current Medications IV Flush (NS 3 ml) 3 ml PER PROTOCOL IV ; Start 12/12/18 at 07:00 Ondansetron HCl (Zofran Inj) 4 mg Q6H PRN IV NAUSEA/VOMITING; Start 12/12/18 at 07:00 Furosemide (Lasix) 40 mg DAILY IV Last administered on 12/14/18at 08:40; Admin Dose 40 MG; Start 12/12/18 at 09:00 Nitroglycerin (Nitroglycerin (Sl Tab) 0.4 Mg) 1 tab Q5M PRN SL .CHEST PAIN; Start 12/12/18 at 07:00 Acetaminophen (Tylenol Tab) 650 mg Q6H PRN PO .PAIN 1-3 OR TEMP; Start 12/12/18 at 07:00 Heparin Sodium (Porcine) (Heparin (5000 Units/1ml)) 5,000 unit Q12 SC Last administered on 12/14/18at 08:49; Admin Dose 5,000 UNIT; Start 12/12/18 at 09:00 Albuterol/ Ipratropium (Duoneb) 3 ml Q2H RESP THERAPY PRN HHN SHORTNESS OF BREATH; Start 12/12/18 at 07:00 Benazepril HCl (Lotensin) 20 mg DAILY PO Last administered on 12/14/18at 08:39; Admin Dose 20 MG; Start 12/12/18 at 09:00 CLAYTON RUIZ Dec 14, 2018 11:03
[2018-12-15] VITALS (7 sets, daily range): BP systolic 104–117; BP diastolic 63–77; PULSE 89–104; RESP 19
[2018-12-15] MEDS: BENAZEPRIL 20 MG TAB PO SCH (09:38)
[2018-12-15] MEDS: FUROSEMIDE 40 MG INJ IV SCH (09:38)
[2018-12-15] MEDS: HEPARIN 5,000 UNIT/1 ML VIAL SC SCH (09:44)
--- NOTE | 2018-12-15 12:18 | PDOCDIS ---
Discharge Instructions CONDITION [id number] Patient Condition: [id number] Stable HOME CARE INSTRUCTIONS: [id number] Diet Instructions: [id number] Low Fat /Cholesterol ACTIVITY: [id number] Activity Restrictions: [id number] Slowly Increase Activity Rest between Activity Avoid heavy lifting FOLLOW UP/APPOINTMENTS Follow-up Plan Please take your medications as prescribed, see your doctor in the clinic in the next 1 week. CLAYTON RUIZ Dec 15, 2018 12:18
[2018-12-15] MEDS ORDERED: FURO40SO PO (12:19)
--- NOTE | 2018-12-15 12:22 | DS ---
Date/Time of Note Date/Time of Note DATE: 12/15/18 TIME: 12:20 Discharge Summary Admission/Discharge Info Admit Date/Time Dec 12, 2018 at 02:23 Discharge Date/Time Patient Condition: Stable Procedures 2D ECHO 12/12/18: Conclusions: Dilated, moderately hypertrophied left ventricle with severely reduced left ventricular systolic function. Restrictive diastolic function. Moderate left atrial enlargement. Severe right atrial enlargement. Moderate-severe mitral regurgitation with a posterior directed jet. Moderate to severe tricuspid regurgitation with moderate pulmonary hypertension. Dilated IVC suggests elevated right atrial pressures. Hx of Present Illness 33-year-old male with a history of cardiomyopathy with systolic dysfunction (EF 35% in 10/2017). Patient presents the ER complaining of worsening lower extremity edema and shortness of breath. He has not been always compliant with his Lasix. When he presented to ER, chest x-ray shows moderate cardiomegaly and mild pulmonary vascular congestion. Patient was last admitted here for similar symptoms in October of last year. Hospital Course Patient was admitted to telemetry floor. Placed on IV diuresis and low-dose beta-rukhsana and JESSICA inhibitor initially during his hospital stay. His shortness of breath and lower extremity swelling symptoms improved. Eventually he was able to ambulate, tolerated p.o. diet. Vital signs remained stable. We titrated up his beta-rukhsana accordingly. Patient's echocardiogram this admission as noted above, his ejection fraction is now the 30-35% range; because the patient has clinically improved today, able to ambulate, tolerated p.o. diet he will be discharged home today in improved condition. See below for full list of discharge medications. Home Meds Active Scripts Furosemide* (Furosemide*) 40 Mg/5 Ml Solution, 60 MG PO DAILY, #150 ML 2 Refills Prov:CLAYTON RUIZTerrance 12/15/18 Reported Medications Carvedilol* (Carvedilol*) 25 Mg Tablet, 25 MG PO BID, #60 TAB 08/14/18 Benazepril Hcl* (Benazepril Hcl*) 20 Mg Tablet, 20 MG PO DAILY, #30 TAB 08/14/18 Discontinued Reported Medications Furosemide* (Furosemide*) 40 Mg Tablet, 40 MG PO DAILY, TAB 08/14/18 Discontinued Scripts Dextromethorphan Hb-Promethazine Hcl* (Promethazine DM* Syrup) 473 Ml Syrup, 5 ML PO Q6 PRN for COUGH for 5 Days, ML Prov:KAYLEE GILLIS PA-C 10/26/18 Levofloxacin* (Levaquin*) 750 Mg Tablet, 750 MG PO DAILY for 5 Days, TAB Prov:KAYLEE GILLIS PA-C 10/26/18 D-Methorphan Hb/P-Epd HCl/Bpm (Fgpvvtglpy-Hsjkeibydpn-Bm Syr) 118 Ml Syrup, 5 ML PO Q4 PRN for COUGH, #1 BOTTLE Prov:AUDIE PUGH DO 09/17/18 Acetaminophen (Tylenol) 500 Mg Tab, 500 MG PO Q6 for fever/pain for 30 Days, TAB Prov:AUDIE PUGH DO 09/17/18 Follow-up Plan Please take your medications as prescribed, see your doctor in the clinic in the next 1 week. Primary Care Provider Care Physician No Primary Time spent on discharge: > 30 minutes CLAYTON RUIZ Dec 15, 2018 12:22
== END 2018-12-15 13:05 | disposition home or self-care (01) | DRG 293 ==
LOC: FTE 19:00 → 6WM 12-12 02:23
PROVIDERS: ADMIT Internal Medicine; ATTEND Hospitalist
DX: I11.0 Hypertensive heart disease with heart failure (principal); I08.1 Rheumatic disorders of both mitral and tricuspid valves; I27.20 Pulmonary hypertension, unspecified; I42.9 Cardiomyopathy, unspecified; I50.23 Acute on chronic systolic (congestive) heart failure; Z87.891 Personal history of nicotine dependence
CPT/HCPCS: 36415; 71045; 80048; 80053; 80061; 82550; 82553; 83036; 83690; 83735; 83880; 84443; 84484; 85025; 85610; 85730; 93005; 93306; 96374; 97162; J1644; J1940

== ENCOUNTER 2018-12-31 00:14 | Inpatient (IN) | payer MEDICAID ==
[~2018-12-31] VITALS: Ht 167.6 cm; Wt 80.3 kg
[2018-12-31] VITALS (13 sets, daily range): BP systolic 124–156; BP diastolic 73–98; PULSE 87–120; RESP 16–18; Ht 167.6 cm; Wt 80.3 kg
[~2018-12-31 00:14] MED LIST changes: -ACET500T98 PO; -D-ME118S24 PO; -D-ME473S2 PO; +FURO40SO PO; -FURO40TA4 PO; -LEVO750T25 PO
--- NOTE | 2018-12-31 01:00 | ERD ---
ER Documentation Chief Complaint Chief Complaint SOB/bloating after running out of Lasix pill since ; hx CHF HPI This is a 33-year-old man with a history of congestive heart failure presents with shortness of breath, dyspnea on exertion, and increasing bilateral lower extremity edema. It seems he was accidentally given a prescription for furosemide suspension, and he states he went to multiple different pharmacies but they could not fill the suspension order, so he has been without his Lasix. He denies chest pain, no loss of consciousness, no fevers or chills, no cough, no vomiting or diarrhea. ROS All systems reviewed and are negative except as per history of present illness. Medications Home Meds Active Scripts Furosemide* (Furosemide*) 40 Mg/5 Ml Solution, 60 MG PO DAILY, #150 ML 2 Refills Prov:CLAYTON RUIZ 12/15/18 Reported Medications Carvedilol* (Carvedilol*) 25 Mg Tablet, 25 MG PO BID, #60 TAB 08/14/18 Benazepril Hcl* (Benazepril Hcl*) 20 Mg Tablet, 20 MG PO DAILY, #30 TAB 08/14/18 Allergies Allergies: Coded Allergies: No Known Allergy (Unverified , 12/11/18) PMhx/Soc Dilated cardiomyopathy with LVEF of 35%, systemic hypertension, pulmonary hypertension, CAD History of Surgery: No Anesthesia Reaction: No Hx Neurological Disorder: No Hx Respiratory Disorders: Yes (bronchitis) Hx Cardiac Disorders: Yes (CHF, HTN) Hx Psychiatric Problems: No Hx Miscellaneous Medical Probl: Yes (CHF,HTN) Hx Alcohol Use: No Hx Substance Use: Yes Hx Tobacco Use: Yes Physical Exam Vitals Vital Signs Date Temp Pulse Resp B/P (MAP) Pulse Ox O2 O2 Flow FiO2 Time Delivery Rate 12/31/18 98.4 118 28 162/106 98 00:23 (124) Physical Exam GENERAL: Well-developed, well-nourished, well-hydrated, dyspneic, afebrile NEURO: Alert and oriented 3, cranial nerves II through XII intact bilaterally, pupils equal round reactive to light, no focal deficits or facial asymmetry CARDIAC: Tachycardic and regular, no murmurs rubs or gallops LUNGS: Poor entry bilaterally, crackles at the bases, no wheezing or stridor ABDOMEN: Soft nontender, no guarding, no rigidity, no rebound, no psoas sign no obturator sign. SKIN: Warm and dry to touch, no abrasions, contusions, or hematomas, no lacerations, no ecchymosis, no target lesions, and without ulcers EXTREMITIES: No clubbing cyanosis, 1+ pitting edema in the lower extremities bilaterally, calves are bilaterally symmetrical, no Homans sign, no popliteal cord sign. Distal pulses equal and bilateral PSYCH: Normal affect without agitation or irritability Result Diagram: 12/31/1810912/31/18109 Results 24 hrs Laboratory Tests Test 12/31/18 01:10 White Blood Count 8.0 10^3/ul Red Blood Count 4.10 10^6/ul Hemoglobin 13.0 g/dl Hematocrit 40.5 % Mean Corpuscular Volume 98.8 fl Mean Corpuscular Hemoglobin 31.7 pg Mean Corpuscular Hemoglobin Concent 32.1 g/dl Red Cell Distribution Width 14.8 % Platelet Count 286 10^3/UL Mean Platelet Volume 9.0 fl Immature Granulocytes % 0.500 % Neutrophils % 71.4 % Lymphocytes % 17.1 % Monocytes % 8.5 % Eosinophils % 1.9 % Basophils % 0.6 % Nucleated Red Blood Cells % 0.0 /100WBC Immature Granulocytes # 0.040 10^3/ul Neutrophils # 5.7 10^3/ul Lymphocytes # 1.4 10^3/ul Monocytes # 0.7 10^3/ul Eosinophils # 0.2 10^3/ul Basophils # 0.1 10^3/ul Nucleated Red Blood Cells # 0.0 10^3/ul Sodium Level 141 mmol/L Potassium Level 4.3 mmol/L Chloride Level 109 mmol/L Carbon Dioxide Level 22 mmol/L Anion Gap 10 Blood Urea Nitrogen 18 mg/dl Creatinine 1.12 mg/dl Est Glomerular Filtrat Rate mL/min > 60 mL/min Glucose Level 93 mg/dl Calcium Level 9.4 mg/dl Total Bilirubin 0.7 mg/dl Direct Bilirubin 0.00 mg/dl Indirect Bilirubin 0.7 mg/dl Aspartate Amino Transf (AST/SGOT) 56 IU/L Alanine Aminotransferase (ALT/SGPT) 72 IU/L Alkaline Phosphatase 129 IU/L Troponin I 0.095 ng/ml B-Type Natriuretic Peptide 4010 PG/ML Total Protein 6.4 g/dl Albumin 3.5 g/dl Globulin 2.90 g/dl Albumin/Globulin Ratio 1.20 Lipase 58 U/L Current Medications Medications Dose Sig/Mic Start Time Status Last (Trade) Ordered Route PRN Stop Time Admin Dose Reason Admin Aspirin 162 mg ONCE ONCE 12/31/18 DC 12/31/18 (Aspirin) PO 01:30 01:17 12/31/18 01:31 Furosemide 60 mg ONCE ONCE 12/31/18 DC 12/31/18 (Lasix) IV :30 01:18 12/31/18 01:31 Enalaprilat 1.25 mg ONCE ONCE 12/31/18 DC 12/31/18 (Vasotec Iv) IV :30 01:19 12/31/18 01:31 3 tab ONCE ONCE 12/31/18 DC 12/31/18 Nitroglycerin SL 01:30 01:20 12/31/18 01:31 (Nitroglyceri n (Sl Tab) 0.4 Mg) Procedures/MDM IV line was established patient was placed on telemetry monitor rhythm strip revealed a sinus tachycardia at 140 bpm with upright P and T waves. Patient was afebrile EKG performed, read by me revealed a sinus tachycardia at 120 bpm, left axis deviation, narrow QRS complex, no concerning ST elevations or depressions noted 1 view chest x-ray performed, read by me revealed cardiomegaly, no acute infiltrates, no pneumothorax Patient was hypertensive and dyspneic I administered furosemide 60 mg IV x1, aspirin 162 mg p.o. for cardioprotective measures, nitroglycerin 0.4 mg sublingual x3, and enalapril 1.25 mg IV x1 CBC and electrolytes were normal, liver function tests were normal, troponin was negative, BNP elevated Critical Care: Time: 42 minutes, this was time separate from other billable procedures. Treatments/Evaluations: Close monitoring and treatment of unstable vital signs, cardiorespiratory, and neurologic status, while maintaining tight balance of fluid, respiratory, and cardiac interventions. Patient has dyspnea, tachypnea, tachycardia and hypertension, I suspect decompensated heart failure, he will be admitted to telemetry setting for continued medical management and diuresis Departure Diagnosis: Primary Impression: Hypertension Hypertension type: essential hypertension Qualified Codes: I10 - Essential (primary) hypertension Additional Impression: CHF (congestive heart failure) Heart failure type: combined systolic and diastolic Heart failure ch ronicity: acute on chronic Qualified Codes: I50.43 - Acute on chronic combined systolic (congestive) and diastolic (congestive) heart failure Condition: ARTUR Rodriguez MD Dec 31, 2018 01:00
[2018-12-31] MEDS ORDERED: FUROSEMIDE 40 MG INJ IV ONE (01:30)
[2018-12-31] MEDS ORDERED: ENALAPRILAT 1.25 MG INJ IV ONE (01:30)
[2018-12-31] MEDS ORDERED: NITROGLYCERIN (SL) 0.4 MG TAB SL ONE (01:30)
[2018-12-31] MEDS ORDERED: ASPIRIN 81 MG TAB PO ONE (01:30)
[2018-12-31] MEDS ORDERED: ONDANSETRON 4 MG INJ IV PRN (03:00)
[2018-12-31] MEDS ORDERED: NACL 0.9% 3 ML SYG IV SCH (03:00)
[2018-12-31] MEDS ORDERED: ACETAMINOPHEN 325 MG TAB PO PRN (03:00)
[2018-12-31] MEDS: LEVALBUTEROL (NEB) 0.63 MG/3 ML AMP HHN SCH ×5 (05:00→21:33)
[2018-12-31] MEDS: BENAZEPRIL 20 MG TAB PO SCH (08:14)
[2018-12-31] MEDS: HEPARIN 5,000 UNIT/1 ML VIAL SC SCH ×2 (08:19→20:40)
--- NOTE | 2018-12-31 08:32 | HP ---
Date/Time of Note Date/Time of Note DATE: 12/31/18 TIME: 08:28 Assessment/Plan VTE Prophylaxis Pharmacological prophylaxis: heparin Lines/Catheters IV Catheter Type (from Nrs): Saline Lock Urinary Cath still in place: No Assessment/Plan Assessment/Plan 1 CHF exacerbation.. Last known EF 35% -Patient without Lasix because a prescription issue for the past 5 days -will diurese -Continue home beta-rukhsana and ACEI 2. Hypertension: Continue home meds. Adjust as needed Result Diagram: 12/31/18 0456 12/31/18 0456 Results 24hrs Laboratory Tests Test 12/31/18 01:10 12/31/18 04:56 White Blood Count 8.0 7.3 Red Blood Count 4.10 L 4.09 L Hemoglobin 13.0 L 13.0 L Hematocrit 40.5 L 39.6 L Mean Corpuscular Volume 98.8 96.8 Mean Corpuscular Hemoglobin 31.7 31.8 Mean Corpuscular Hemoglobin Concent 32.1 32.8 Red Cell Distribution Width 14.8 H 15.1 H Platelet Count 286 # 292 Mean Platelet Volume 9.0 9.4 Immature Granulocytes % 0.500 H 0.400 Neutrophils % 71.4 64.1 Lymphocytes % 17.1 20.8 Monocytes % 8.5 10.9 Eosinophils % 1.9 3.0 Basophils % 0.6 0.8 Nucleated Red Blood Cells % 0.0 0.0 Immature Granulocytes # 0.040 H 0.030 Neutrophils # 5.7 4.7 Lymphocytes # 1.4 1.5 Monocytes # 0.7 0.8 Eosinophils # 0.2 0.2 Basophils # 0.1 0.1 Nucleated Red Blood Cells # 0.0 0.0 Sodium Level 141 143 Potassium Level 4.3 3.8 Chloride Level 109 106 Carbon Dioxide Level 22 28 Anion Gap 10 9 Blood Urea Nitrogen 18 21 H Creatinine 1.12 1.16 Est Glomerular Filtrat Rate mL/min > 60 > 60 Glucose Level 93 106 Calcium Level 9.4 9.1 Total Bilirubin 0.7 0.7 Direct Bilirubin 0.00 0.00 Indirect Bilirubin 0.7 0.7 Aspartate Amino Transf (AST/SGOT) 56 H 53 H Alanine Aminotransferase (ALT/SGPT) 72 H 67 Alkaline Phosphatase 129 H 123 H Troponin I 0.095 B-Type Natriuretic Peptide 4010 H Total Protein 6.4 6.2 Albumin 3.5 3.4 Globulin 2.90 2.80 Albumin/Globulin Ratio 1.20 1.21 Lipase 58 HPI/ROS Admit Date/Time Admit Date/Time Dec 31, 2018 at 01:35 Hx of Present Illness This is a 33-year-old male with a history of hypertension, CHF with EF of 35% who presented to ER complaining of bilateral lower extremity swelling and shortness of breath. He said for the past 5 days he has been trying to get his Lasix refilled, but unfortunately because of an issue the prescription, he was unable to get the medication. He lower extremity swelling has been progressively getting worse. Yesterday started developing shortness of breath and he felt that if his face was swelling, therefore he came to the ER for evaluation. PMH/Family/Social Past Medical History Medical History: congestive heart failure, hypertension Medications Current Medications IV Flush (NS 3 ml) 3 ml PER PROTOCOL IV ; Start 12/31/18 at 03:00 Ondansetron HCl (Zofran Inj) 4 mg Q6H PRN IV NAUSEA/VOMITING; Start 12/31/18 at 03:00 Acetaminophen (Tylenol Tab) 650 mg Q6H PRN PO .PAIN 1-3 OR TEMP; Start 12/31/18 at 03:00 Heparin Sodium (Porcine) (Heparin (5000 Units/1ml)) 5,000 unit Q12 SC Last administered on 12/31/18at 08:19; Admin Dose 5,000 UNIT; Start 12/31/18 at 09:00 Ipratropium [place] (Atrovent 0.02% (Neb)) 0.5 mg Q4H RESP THERAPY PRN NEB SHORTNESS OF BREATH; Start 12/31/18 at 03:00 Benazepril HCl (Lotensin) 20 mg DAILY PO Last administered on 12/31/18at 08:14; Admin Dose 20 MG; Start 12/31/18 at 09:00 Carvedilol (Coreg) 25 mg BID PO Last administered on 12/31/18at 03:11; Admin Dose 25 MG; Start 12/31/18 at 03:00 Levalbuterol (Xopenex Neb) 0.63 mg Q4H RESP THERAPY HHN ; Start 12/31/18 at 05:00 Furosemide (Lasix) 60 mg DAILY PO Last administered on 12/31/18at 08:15; Admin Dose 60 MG; Start 12/31/18 at 09:00 Coded Allergies: No Known Allergy (Unverified , 12/11/18) Past Surgical History Past Surgical Hx: other (See HPI) Family History Significant Family History: no pertinent family hx Social History Alcohol Use: none Smoking Status: Current every day smoker Drug Use: none Exam/Review of Systems Vital Signs Vitals Vital Signs Date Temp Pulse Resp B/P (MAP) Pulse Ox O2 O2 Flow FiO2 Time Delivery Rate 12/31/18 94 08:04 12/31/18 97.9 16 128/76 97 07:44 (93) 12/31/18 21 05:15 12/31/18 Room Air 02:35 Intake and Output 12/30/18 12/30/18 12/31/18 1515:00 23:00 07:00 IntakeIntake Total 500 ml OutputOutput Total 1950 ml BalanceBalance -1450 ml Exam Constitutional: alert, oriented, well developed Head: normocephalic, atraumatic Eyes: EOMI, PERRL Respiratory: normal air movement Cardiovascular: other (Tachycardic with regular rhythm) Gastrointestinal: soft Extremities: edema SARA BOOTH MD Dec 31, 2018 08:32
[2018-12-31] MEDS ORDERED: FUROSEMIDE (8 MG/ML PO SYG) PO SCH (09:00)
[2018-12-31] MEDS ORDERED: FUROSEMIDE 20 MG TAB PO SCH (09:00)
--- NOTE | 2018-12-31 09:10 | QN ---
SIVAN DENNIS NP 12/31/18 0910: Documentation Comment 3-year-old male with history of cardiomyopathy, congestive heart failure with last known ejection fraction 30%, mitral/tricuspid regurgitation, pulmonary hypertension, who was recently discharged from [facility] for CHF exacerbation, who apparently was unable to refill his Lasix prescription, came back with worsening bilateral lower extremity swelling associated with shortness of breath secondary. Diagnosis: CHF exacerbation. Continue p.o. Lasix. I will put patient on Lasix 40 mg IV twice a day. Continue beta-blockers. I also requested cardiology consultation with . Patient is also noted with elevated transaminases, as such I will also order a liver ultrasound. Overall, patient is improving gradually. We will continue to monitor patient, monitor renal function and electrolyte levels closely. Case discussed with Dr. Anthony. ARTUR ANTHONY 12/31/18 1826: Documentation Comment patient is 33 years old, not 3 years old SIVAN DENNIS NP Dec 31, 2018 09:10 ARTUR ANTHONY Dec 31, 2018 18:26
--- NOTE | 2018-12-31 14:45 | CONS ---
Assessment/Plan Cardiology NYHA: III Heart Failure Type: Acute on Chronic Heart Failure Type: Systolic Assessment/Plan Hospital Course (Demo Recall) Assessment: Acute on chronic systolic heart failure - secondary to being off of Lasix, patient reports being unable to refill the prescription Cardiomyopathy, LVEF 30% - unclear prior work up, patient reports being told it was thought secondary to methamphetamine use Recommendations: -continue Lasix 40mg IV BID -continue carvedilol 25mg BID and benazepril 20mg daily Consultation Date/Type/Reason Admit Date/Time Dec 31, 2018 at 01:35 Type of Consult Cardiology Reason for Consultation congestive heart failure Date/Time of Note DATE: 12/31/18 TIME: 14:41 Hx of Present Illness The patient is a 33 year-old male with chronic systolic heart failure who presented with shortness of breath and bilateral lower extremity edema. He reports being unable to refill his outpatient Lasix prescription and having been off the medication for 5 days. 14 point review of systems negative other than per HPI. Past Medical History Chronic systolic heart failure Cardiomyopathy, LVEF 30% Home Meds Active Scripts Furosemide* (Furosemide*) 40 Mg/5 Ml Solution, 60 MG PO DAILY, #150 ML 2 Refills Prov:JOSEPHCLAYTON S. 12/15/18 Reported Medications Carvedilol* (Carvedilol*) 25 Mg Tablet, 25 MG PO BID, #60 TAB 08/14/18 Benazepril Hcl* (Benazepril Hcl*) 20 Mg Tablet, 20 MG PO DAILY, #30 TAB 08/14/18 Medications Current Medications IV Flush (NS 3 ml) 3 ml PER PROTOCOL IV ; Start 12/31/18 at 03:00 Ondansetron HCl (Zofran Inj) 4 mg Q6H PRN IV NAUSEA/VOMITING; Start 12/31/18 at 03:00 Acetaminophen (Tylenol Tab) 650 mg Q6H PRN PO .PAIN 1-3 OR TEMP; Start 12/31/18 at 03:00 Heparin Sodium (Porcine) (Heparin (5000 Units/1ml)) 5,000 unit Q12 SC Last administered on 12/31/18at 08:19; Admin Dose 5,000 UNIT; Start 12/31/18 at 09:00 Ipratropium [place] (Atrovent 0.02% (Neb)) 0.5 mg Q4H RESP THERAPY PRN NEB SHORTNESS OF BREATH; Start 12/31/18 at 03:00 Benazepril HCl (Lotensin) 20 mg DAILY PO Last administered on 12/31/18at 08:14; Admin Dose 20 MG; Start 12/31/18 at 09:00 Carvedilol (Coreg) 25 mg BID PO Last administered on 12/31/18at 03:11; Admin Dose 25 MG; Start 12/31/18 at 03:00 Levalbuterol (Xopenex Neb) 0.63 mg Q4H RESP THERAPY HHN Last administered on 12/31/18at 12:16; Admin Dose 0.63 MG; Start 12/31/18 at 05:00 Furosemide (Lasix) 40 mg BID DIURETICS IV ; Start 12/31/18 at 18:00 Allergies: Coded Allergies: No Known Allergy (Unverified , 12/11/18) Past Surgical History Past Surgical Hx: no surgical history, other (See HPI) Family History Significant Family History: no pertinent family hx Social History Alcohol Use: occasionally Smoking Status: Former smoker Drug Use: none, other (prior methamphetamine use) Exam/Review of Systems Vital Signs Vitals Vital Signs Date Temp Pulse Resp B/P (MAP) Pulse Ox O2 O2 Flow FiO2 Time Delivery Rate 12/31/18 80 20 12:16 12/31/18 98.9 124/73 98 11:16 (90) 12/31/18 21 05:15 12/31/18 Room Air 02:35 Intake and Output 12/30/18 12/30/18 12/31/18 1414:59 22:59 06:59 IntakeIntake Total 500 ml OutputOutput Total 1950 ml BalanceBalance -1450 ml Exam Constitutional: alert, well developed Psych: no complaints Head: normocephalic, atraumatic Eyes: nl conjunctiva, nl lids ENMT: nl external ears & nose, nl nasal mucosa & septum Neck: supple, non-tender Respiratory: clear to auscultation Cardiovascular: regular rate and rhythm Gastrointestinal: soft, non-tender Musculoskeletal: nl extremities to inspection Extremities: edema (trace bilateral lower extremity); No cyanosis, No clubbing Neurological: nl mental status, nl speech Labs Result Diagram: 12/31/18 0456 12/31/18 0456 Results 24hrs Laboratory Tests Test 3/17/19 01:10 12/31/18 04:56 White Blood Count 8.0 7.3 Red Blood Count 4.10 L 4.09 L Hemoglobin 13.0 L 13.0 L Hematocrit 40.5 L 39.6 L Mean Corpuscular Volume 98.8 96.8 Mean Corpuscular Hemoglobin 31.7 31.8 Mean Corpuscular Hemoglobin Concent 32.1 32.8 Red Cell Distribution Width 14.8 H 15.1 H Platelet Count 286 # 292 Mean Platelet Volume 9.0 9.4 Immature Granulocytes % 0.500 H 0.400 Neutrophils % 71.4 64.1 Lymphocytes % 17.1 20.8 Monocytes % 8.5 10.9 Eosinophils % 1.9 3.0 Basophils % 0.6 0.8 Nucleated Red Blood Cells % 0.0 0.0 Immature Granulocytes # 0.040 H 0.030 Neutrophils # 5.7 4.7 Lymphocytes # 1.4 1.5 Monocytes # 0.7 0.8 Eosinophils # 0.2 0.2 Basophils # 0.1 0.1 Nucleated Red Blood Cells # 0.0 0.0 Sodium Level 141 143 Potassium Level 4.3 3.8 Chloride Level 109 106 Carbon Dioxide Level 22 28 Anion Gap 10 9 Blood Urea Nitrogen 18 21 H Creatinine 1.12 1.16 Est Glomerular Filtrat Rate mL/min > 60 > 60 Glucose Level 93 106 Calcium Level 9.4 9.1 Total Bilirubin 0.7 0.7 Direct Bilirubin 0.00 0.00 Indirect Bilirubin 0.7 0.7 Aspartate Amino Transf (AST/SGOT) 56 H 53 H Alanine Aminotransferase (ALT/SGPT) 72 H 67 Alkaline Phosphatase 129 H 123 H Troponin I 0.095 B-Type Natriuretic Peptide 4010 H Total Protein 6.4 6.2 Albumin 3.5 3.4 Globulin 2.90 2.80 Albumin/Globulin Ratio 1.20 1.21 Lipase 58 Medications Medications Current Medications IV Flush (NS 3 ml) 3 ml PER PROTOCOL IV ; Start 12/31/18 at 03:00 Ondansetron HCl (Zofran Inj) 4 mg Q6H PRN IV NAUSEA/VOMITING; Start 12/31/18 at 03:00 Acetaminophen (Tylenol Tab) 650 mg Q6H PRN PO .PAIN 1-3 OR TEMP; Start 12/31/18 at 03:00 Heparin Sodium (Porcine) (Heparin (5000 Units/1ml)) 5,000 unit Q12 SC Last administered on 12/31/18at 08:19; Admin Dose 5,000 UNIT; Start 12/31/18 at 09:00 Ipratropium [place] (Atrovent 0.02% (Neb)) 0.5 mg Q4H RESP THERAPY PRN NEB S HORTNESS OF BREATH; Start 12/31/18 at 03:00 Benazepril HCl (Lotensin) 20 mg DAILY PO Last administered on 12/31/18at 08:14; Admin Dose 20 MG; Start 12/31/18 at 09:00 Carvedilol (Coreg) 25 mg BID PO Last administered on 12/31/18at 03:11; Admin Dose 25 MG; Start 12/31/18 at 03:00 Levalbuterol (Xopenex Neb) 0.63 mg Q4H RESP THERAPY HHN Last administered on 12/31/18at 12:16; Admin Dose 0.63 MG; Start 12/31/18 at 05:00 Furosemide (Lasix) 40 mg BID DIURETICS IV ; Start 12/31/18 at 18:00 ABRAM ARCE MD Dec 31, 2018 14:45
[2018-12-31] MEDS: FUROSEMIDE 40 MG INJ IV SCH (17:38)
[2018-12-31] MEDS: IPRATROPIUM (NEB) 0.5 MG/2.5 ML AMP NEB PRN (21:33)
[2019-01-01] VITALS (9 sets, daily range): BP systolic 115–131; BP diastolic 63–89; PULSE 65–103; RESP 16–19
[2019-01-01] MEDS: IPRATROPIUM (NEB) 0.5 MG/2.5 ML AMP NEB PRN ×3 (01:44→09:02)
[2019-01-01] MEDS: LEVALBUTEROL (NEB) 0.63 MG/3 ML AMP HHN SCH ×6 (01:44→21:51)
[2019-01-01] MEDS: FUROSEMIDE 40 MG INJ IV SCH (05:35)
[2019-01-01] MEDS: BENAZEPRIL 20 MG TAB PO SCH (08:12)
[2019-01-01] MEDS: HEPARIN 5,000 UNIT/1 ML VIAL SC SCH ×2 (08:13→21:33)
[2019-01-01] MEDS ORDERED: MAGNESIUM SULFATE 2 GM/50 ML 50 ML IVPB ONE (08:30)
--- NOTE | 2019-01-01 09:52 | PN ---
Date/Time of Note Date/Time of Note DATE: 01/01/19 TIME: 09:52 Assessment/Plan VTE Prophylaxis Risk score (from Ns)>0 risk: 2 SCD applied (from Ns): Yes SCD contraindicated: low risk/ambulating Pharmacological prophylaxis: heparin Lines/Catheters IV [facility] Saline Lock Urinary Cath still in place: No Assessment/Plan Hospital Course SUBJECTIVE: Lying in bed comfortably. Heart 5 beats of V. tach this morning. No chest pain, palpitation or SOB reported. OBJECTIVE: Vital signs-see below PHYSICAL EXAM: Constitutional: Well-developed, adequately built, lying in bed comfortably. Psych: nl mood/affect, no complaints Head: atraumatic, normocephalic Eyes: nl conjunctiva, nl sclera ENMT: mucosa pink and moist, nl external ears & nose Neck: non-tender, supple Respiratory: clear to auscultation, normal air movement Cardiovascular: +JVD. nl pulses, regular rate and rhythm Gastrointestinal: non-tender, soft, bowel sounds active in all 4 quadrants. Musculoskeletal/extremities: Edema BLE-trace/resolving. nl extremities to inspection, motor strength equal bilaterally, no focal deficit. Normal pulses,no cyanosis Neurological: Alert oriented 3,nl speech, nl strength Skin: nl turgor ASSESSMENT/PLAN: 33-year-old male with cardiomyopathy,HF, history of meth abuse, presented with worsening shortness of breath/bilateral lower extremity swelling after he has been off Lasix for about a week. 1. Acute on chronic systolic congestive heart failure exacerbation. -Now stable. -Continue IV Lasix, beta-blockers and JESSICA inhibitors. -Follow-up cardiology recommendations. 2. Cardiomyopathy with last known ejection fraction 30%. -Treatment as above. 3. NSVT, 5 beats: Asymptomatic -We will up cardiology recommendations. Continue beta-blockers. -Patient with hypomagnesemia which was corrected already. Continue to monitor electrolytes levels and keep potassium and magnesium within normal limits. 4. History of meth abuse DVT prophylaxis: PUD prophylaxis: Not indicated CODE STATUS: Full code Diet: Regular diet. Disposition: Patient had nonsustained VT 9 beats, asymptomatic this morning. Continue telemetry. Monitor for any further arrhythmias and symptoms. If stable in the next 24 hours, will de-escalate Lasix and discharge planning with patient to follow-up with [facility] cardiology follow-up. Patient was seen in collaboration with Dr. Daugherty. Result Diagram: 01/01/19 0515 01/01/19 0515 Results 24hrs Laboratory Tests Test 01/01/19 05:15 White Blood Count 6.4 Red Blood Count 4.34 L Hemoglobin 13.6 L Hematocrit 42.1 Mean Corpuscular Volume 97.0 Mean Corpuscular Hemoglobin 31.3 Mean Corpuscular Hemoglobin Concent 32.3 Red Cell Distribution Width 14.6 H Platelet Count 298 Mean Platelet Volume 9.4 Immature Granulocytes % 0.500 H Neutrophils % 56.4 Lymphocytes % 23.0 Monocytes % 13.0 H Eosinophils % 6.3 Basophils % 0.8 Nucleated Red Blood Cells % 0.0 Immature Granulocytes # 0.030 Neutrophils # 3.6 Lymphocytes # 1.5 Monocytes # 0.8 Eosinophils # 0.4 Basophils # 0.1 Nucleated Red Blood Cells # 0.0 Sodium Level 141 Potassium Level 3.5 Chloride Level 102 Carbon Dioxide Level 28 Anion Gap 11 Blood Urea Nitrogen 36 #H Creatinine 1.21 Est Glomerular Filtrat Rate mL/min > 60 Glucose Level 95 Calcium Level 8.6 Phosphorus Level 5.4 H Magnesium Level 1.5 L Exam/Review of Systems Exam Vitals Vital Signs Date Temp Pulse Resp B/P (MAP) Pulse Ox O2 O2 Flow FiO2 Time Delivery Rate 01/01/19 84 20 96 21 09:05 01/01/19 97.6 122/76 07:40 (91) 12/31/18 Room Air 02:35 Intake and Output 12/31/18 12/31/18 01/01/19 1515:00 23:00 07:00 IntakeIntake Total 800 ml 1800 ml OutputOutput Total 2400 ml 3300 ml BalanceBalance -1600 ml -1500 ml Results Results 24hrs Laboratory Tests Test 01/01/19 05:15 White Blood Count 6.4 Red Blood Count 4.34 L Hemoglobin 13.6 L Hematocrit 42.1 Mean Corpuscular Volume 97.0 Mean Corpuscular Hemoglobin 31.3 Mean Corpuscular Hemoglobin Concent 32.3 Red Cell Distribution Width 14.6 H Platelet Count 298 Mean Platelet Volume 9.4 Immature Granulocytes % 0.500 H Neutrophils % 56.4 Lymphocytes % 23.0 Monocytes % 13.0 H Eosinophils % 6.3 Basophils % 0.8 Nucleated Red Blood Cells % 0.0 Immature Granulocytes # 0.030 Neutrophils # 3.6 Lymphocytes # 1.5 Monocytes # 0.8 Eosinophils # 0.4 Basophils # 0.1 Nucleated Red Blood Cells # 0.0 Sodium Level 141 Potassium Level 3.5 Chloride Level 102 Carbon Dioxide Level 28 Anion Gap 11 Blood Urea Nitrogen 36 #H Creatinine 1.21 Est Glomerular Filtrat Rate mL/min > 60 Glucose Level 95 Calcium Level 8.6 Phosphorus Level 5.4 H Magnesium Level 1.5 L Medications Medication Current Medications IV Flush (NS 3 ml) 3 ml PER PROTOCOL IV ; Start 12/31/18 at 03:00 Ondansetron HCl (Zofran Inj) 4 mg Q6H PRN IV NAUSEA/VOMITING; Start 12/31/18 at 03:00 Acetaminophen (Tylenol Tab) 650 mg Q6H PRN PO .PAIN 1-3 OR TEMP Last administered on 12/31/18at 19:37; Admin Dose 650 MG; Start 12/31/18 at 03:00 Heparin Sodium (Porcine) (Heparin (5000 Units/1ml)) 5,000 unit Q12 SC Last administered on 01/01/19 08:13; Admin Dose 5,000 UNIT; Start 12/31/18 at 09:00 Ipratropium [place] (Atrovent 0.02% (Neb)) 0.5 mg Q4H RESP THERAPY PRN NEB SHORTNESS OF BREATH Last administered on 01/01/19 09:02; Admin Dose 0.5 MG; Start 12/31/18 at 03:00 Benazepril HCl (Lotensin) 20 mg DAILY PO Last administered on 01/01/19 08:12; Admin Dose 20 MG; Start 12/31/18 at 09:00 Carvedilol (Coreg) 25 mg BID PO Last administered on 01/01/19 08:12; Admin Dose 25 MG; Start 12/31/18 at 03:00 Levalbuterol (Xopenex Neb) 0.63 mg Q4H RESP THERAPY HHN Last administered on 01/01/19 09:02; Admin Dose 0.63 MG; Start 12/31/18 at 05:00 Furosemide (Lasix) 40 mg BID DIURETICS IV Last administered on 01/01/19at 05:35; Admin Dose 40 MG; Start 12/31/18 at 18:00 Magnesium Sulfate 50 ml @ 25 mls/hr ONCE ONCE IVPB ; Start 01/01/19 at 08:30; Stop 01/01/19 at 10:29 SIVAN DENNIS NP Jan 01, 2019 09:52
--- NOTE | 2019-01-01 15:37 | CONS ---
Assessment/Plan Cardiology NYHA: III Heart Failure Type: Acute on Chronic Heart Failure Type: Systolic Assessment/Plan Hospital Course (Demo Recall) Assessment: Acute on chronic systolic heart failure - secondary to being off of Lasix, patient reports being unable to refill the prescription, now improved with diuresis Cardiomyopathy, LVEF 30% - unclear prior work up, patient reports being told it was thought secondary to methamphetamine use Hypokalemia and hypomagnesemia Recommendations: -replace potassium and magnesium -change IV Lasix back to PO Lasix 60mg daily -continue carvedilol 25mg BID and benazepril 20mg daily Stable for discharge planning from cardiac standpoint. Consultation Date/Type/Reason Admit Date/Time Dec 31, 2018 at 01:35 Initial Consult Date Type of Consult Cardiology Date/Time of Note DATE: 01/01/19 TIME: 15:33 24 HR Interval Summary Free Text/Dictation Shortness of breath and lower extremity edema resolved. Detailed Summary Additional Comments 14 point review of systems without changes. Exam/Review of Systems Vital Signs Vitals Vital Signs Date Temp Pulse Resp B/P (MAP) Pulse Ox O2 O2 Flow FiO2 Time Delivery Rate 01/01/19 97.9 72 16 115/63 98 14:54 (80) 01/01/19 21 14:08 12/31/18 Room Air 02:35 Intake and Output 12/31/18 12/31/18 01/01/19 1515:00 23:00 07:00 IntakeIntake Total 800 ml 1800 ml OutputOutput Total 2400 ml 3300 ml BalanceBalance -1600 ml -1500 ml Exam Exam Constitutional: alert, well developed Psych: no complaints Head: normocephalic, atraumatic Eyes: nl conjunctiva, nl lids ENMT: nl external ears & nose, nl nasal mucosa & septum Neck: supple, non-tender Respiratory: clear to auscultation Cardiovascular: regular rate and rhythm Gastrointestinal: soft, non-tender Musculoskeletal: nl extremities to inspection Extremities: edema (trace bilateral lower extremity); No cyanosis, No clubbing Neurological: nl mental status, nl speech Labs Result Diagram: 01/01/1915 01/01/19 0515 Results 24hrs Laboratory Tests Test 01/01/19 05:13 01/01/19 05:15 Hemoglobin A1c 5.9 Triglycerides Level 79 Cholesterol Level 139 LDL Cholesterol, Calculated 88 HDL Cholesterol 35 Cholesterol/HDL Ratio 3.9 Urine Opiates Screen Negative Urine Barbiturates Negative Urine Amphetamines Screen Negative Urine Benzodiazepines Screen Negative Urine Cocaine Screen Negative Urine Cannabinoids Negative White Blood Count 6.4 Red Blood Count 4.34 L Hemoglobin 13.6 L Hematocrit 42.1 Mean Corpuscular Volume 97.0 Mean Corpuscular Hemoglobin 31.3 Mean Corpuscular Hemoglobin Concent 32.3 Red Cell Distribution Width 14.6 H Platelet Count 298 Mean Platelet Volume 9.4 Immature Granulocytes % 0.500 H Neutrophils % 56.4 Lymphocytes % 23.0 Monocytes % 13.0 H Eosinophils % 6.3 Basophils % 0.8 Nucleated Red Blood Cells % 0.0 Immature Granulocytes # 0.030 Neutrophils # 3.6 Lymphocytes # 1.5 Monocytes # 0.8 Eosinophils # 0.4 Basophils # 0.1 Nucleated Red Blood Cells # 0.0 Sodium Level 141 Potassium Level 3.5 Chloride Level 102 Carbon Dioxide Level 28 Anion Gap 11 Blood Urea Nitrogen 36 #H Creatinine 1.21 Est Glomerular Filtrat Rate mL/min > 60 Glucose Level 95 Calcium Level 8.6 Phosphorus Level 5.4 H Magnesium Level 1.5 L Medications Medications Current Medications IV Flush (NS 3 ml) 3 ml PER PROTOCOL IV ; Start 12/31/18 at 03:00 Ondansetron HCl (Zofran Inj) 4 mg Q6H PRN IV NAUSEA/VOMITING; Start 12/31/18 at 03:00 Acetaminophen (Tylenol Tab) 650 mg Q6H PRN PO .PAIN 1-3 OR TEMP Last administered on 12/31/18at 19:37; Admin Dose 650 MG; Start 12/31/18 at 03:00 Heparin Sodium (Porcine) (Heparin (5000 Units/1ml)) 5,000 unit Q12 SC Last administered on 01/01/19at 08:13; Admin Dose 5,000 UNIT; Start 12/31/18 at 09:00 Ipratropium [place] (Atrovent 0.02% (Neb)) 0.5 mg Q4H RESP THERAPY PRN NEB SHORTNESS OF BREATH Last administered on 01/01/19at 09:02; Admin Dose 0.5 MG; Start 12/31/18 at 03:00 Benazepril HCl (Lotensin) 20 mg DAILY PO Last administered on 01/01/19at 08:12; Admin Dose 20 MG; Start 12/31/18 at 09:00 Carvedilol (Coreg) 25 mg BID PO Last administered on 01/01/19at 08:12; Admin Dose 25 MG; Start 12/31/18 at 03:00 Levalbuterol (Xopenex Neb) 0.63 mg Q4H RESP THERAPY HHN Last administered on 01/01/19 14:06; Admin Dose 0.63 MG; Start 12/31/18 at 05:00 Furosemide (Lasix) 40 mg BID DIURETICS IV Last administered on 01/01/19at 05:35; Admin Dose 40 MG; Start 12/31/18 at 18:00 ABRAM ARCE MD Jan 01, 2019 15:37
[2019-01-01] MEDS ORDERED: POTASSIUM CHLORIDE (SR) 20 MEQ TAB PO ONE (16:00)
[2019-01-02] VITALS (7 sets, daily range): BP systolic 106–120; BP diastolic 63–76; PULSE 83–101; RESP 16–18
[2019-01-02] MEDS: LEVALBUTEROL (NEB) 0.63 MG/3 ML AMP HHN SCH ×3 (01:33→09:06)
[2019-01-02] MEDS: BENAZEPRIL 20 MG TAB PO SCH (08:57)
[2019-01-02] MEDS: HEPARIN 5,000 UNIT/1 ML VIAL SC SCH (09:00)
[2019-01-02] MEDS ORDERED: FUROSEMIDE 40 MG TAB PO SCH (09:00)
--- NOTE | 2019-01-02 11:52 | PDOCDIS ---
Discharge Instructions CONDITION [id number] Patient Condition: [id number] Stable HOME CARE INSTRUCTIONS: [id number] Diet Instructions: [id number] Low Fat /Cholesterol FOLLOW UP/APPOINTMENTS Follow-up Plan 1. Follow-up with primary care physician in 1 week. Follow-up with your equities analyst in 2 weeks. SIVAN DENNIS NP Jan 02, 2019 11:52
--- NOTE | 2019-01-02 11:58 | DS ---
Date/Time of Note Date/Time of Note DATE: 01/02/19 TIME: 11:56 Discharge Summary Admission/Discharge Info Admit Date/Time Dec 31, 2018 at 01:35 Discharge Date/Time Discharge Diagnosis 1. Acute on chronic systolic congestive heart failure exacerbation .stable 2. Cardiomyopathy with last known ejection fraction 30%. 3. Single episode NSVT, 5 beats, Asymptomatic 4. History of meth abuse Patient Condition: Stable Consults , patrol police lieutenant Procedures 12/31/2018. Chest x-ray. IMPRESSION: Stable moderate cardiomegaly. No overt CHF, pleural effusion or pneumothorax is seen. Hospital Course 33-year-old male with cardiomyopathy,HF, history of meth abuse, presented with worsening shortness of breath/bilateral lower extremity swelling after he has been off Lasix for about a week. Patient was treated with IV Lasix, beta-blockers and JESSICA inhibitors. Volume status remained stable. He was being followed by patrol police lieutenant. Patient was also noted with asymptomatic nonsustained VT 5 beats. Patient was noted with hypomagnesemia which was repleted. He did not have any further arrhythmias. Patient was cleared for outpatient follow-up from a cardiac perspective. According to the patient, last time he was given prescription for Lasix liquid which was unable to fill by his pharmacy, as such I had given him a total of 60 mg daily dose of Lasix pills (40+20) which patient agreed to refill today. Approximately 60 m spent on coordinating the discharge on this patient. Patient was seen in collaboration with Dr. Rush. Home Meds Active Scripts Furosemide* (Lasix*) 20 Mg Tablet, 20 MG PO DAILY, #30 TAB Prov:SIVAN DENNIS NP 01/02/19 Furosemide* (Furosemide*) 40 Mg Tablet, 40 MG PO DAILY, #30 TAB Total daily dose should be 60 mg. patient to take 40 mg tablet and 20 mg tablet to total 60 mg. If not, patient needs to take three 20 mg pills. Prov:SIVAN DENNIS NP 01/02/19 Reported Medications Carvedilol* (Carvedilol*) 25 Mg Tablet, 25 MG PO BID, #60 TAB 08/14/18 Benazepril Hcl* (Benazepril Hcl*) 20 Mg Tablet, 20 MG PO DAILY, #30 TAB 08/14/18 Follow-up Plan 1. Follow-up with primary care physician in 1 week. Follow-up with your patrol police lieutenant in 2 weeks. Primary Care Provider Care Physician No Primary Pending Labs Laboratory Tests Test 01/02/19 05:45 Sodium Level 140 mmol/L (135-144) Potassium Level 4.5 mmol/L (3.5-5.1) Chloride Level 107 mmol/L (97-110) Carbon Dioxide Level 27 mmol/L (21-31) Anion Gap 6 (5-13) Blood Urea Nitrogen 32 mg/dl (7-20) Creatinine 1.17 mg/dl (0.61-1.24) Est Glomerular Filtrat Rate mL/min > 60 mL/min (>60) Glucose Level 97 mg/dl (70-220) Calcium Level 8.9 mg/dl (8.4-10.2) Magnesium Level 2.0 mg/dl (1.7-2.5) SIVAN DENNIS NP Jan 02, 2019 11:58
[2019-01-02] MEDS ORDERED: FURO40TA4 PO (13:34)
[2019-01-02] MEDS ORDERED: FURO-110 PO (13:34)
== END 2019-01-02 14:04 | disposition home or self-care (01) | DRG 292 ==
LOC: E/R 00:14 → 6WM 01:35
PROVIDERS: ADMIT Internal Medicine; ATTEND Internal Medicine
DX: I11.0 Hypertensive heart disease with heart failure (principal); I47.2 Ventricular tachycardia; I50.23 Acute on chronic systolic (congestive) heart failure; E87.6 Hypokalemia; E83.42 Hypomagnesemia; I42.9 Cardiomyopathy, unspecified; F15.21 Other stimulant dependence, in remission; Z87.891 Personal history of nicotine dependence
CPT/HCPCS: 36415; 71045; 76705; 80048; 80053; 80061; 80307; 83036; 83690; 83735; 83880; 84100; 84484; 85025; 93005; 94640; 96374; 96375; J1644; J1940; J3475

== ENCOUNTER 2019-05-02 00:37 | Inpatient (IN) | payer MEDICAID, OTHER ==
[~2019-05-02] VITALS: Ht 167.6 cm; Wt 74.8 kg
[~2019-05-02 00:37] MED LIST changes: +FURO-110 PO; -FURO40SO PO; +FURO40TA4 PO
[2019-05-02] MEDS ORDERED: FURO80TA3 PO (02:30)
--- NOTE | 2019-05-02 02:48 | ERD ---
ER Documentation Chief Complaint Chief Complaint TACHYCARDIA; FEELS SOB; HX OF HEART FAILUER HPI Is a 34-year-old male with a history of cardiomyopathy who comes in with shortness of breath and tachycardia. He has been feeling short of breath over the past 2 days. Denies any chest pain. Denies any nausea vomiting fevers or chills. Does complain of PND and orthopnea over the past 2 days getting progressively worse as well. ROS All systems reviewed and are negative except as per history of present illness. Medications Home Meds Reported Medications Furosemide* (Furosemide*) 80 Mg Tablet, 80 MG PO DAILY, #30 TAB 05/02/19 Carvedilol* (Carvedilol*) 25 Mg Tablet, 25 MG PO BID, #60 TAB 08/14/18 Benazepril Hcl* (Benazepril Hcl*) 20 Mg Tablet, 20 MG PO DAILY, #30 TAB 08/14/18 Discontinued Scripts Furosemide* (Lasix*) 20 Mg Tablet, 20 MG PO DAILY, #30 TAB Prov:SIVAN DENNIS NP 01/02/19 Furosemide* (Furosemide*) 40 Mg Tablet, 40 MG PO DAILY, #30 TAB Total daily dose should be 60 mg. patient to take 40 mg tablet and 20 mg tablet to total 60 mg. If not, patient needs to take three 20 mg pills. Prov:SIVAN DENNIS NP 01/02/19 Allergies Allergies: Coded Allergies: No Known Allergy (Unverified , 12/11/18) PMhx/Soc History of Surgery: No Anesthesia Reaction: No Hx Neurological Disorder: No Hx Respiratory Disorders: Yes (bronchitis) Hx Cardiac Disorders: Yes (HTN, CHF) Hx Psychiatric Problems: No Hx Miscellaneous Medical Probl: Yes Hx Alcohol Use: No Hx Substance Use: No Hx Tobacco Use: No Smoking Status: Never smoker Physical Exam Vitals Vital Signs Date Temp Pulse Resp B/P (MAP) Pulse Ox O2 O2 Flow FiO2 Time Delivery Rate 05/02/19 115 22 156/116 98 Room Air 02:34 (129) 05/02/19 126 26 156/119 98 Room Air 01:15 (131) 05/02/19 97.6 127 22 159/106 97 00:54 (123) Physical Exam Const: No acute distress Head: Atraumatic Eyes: Normal Conjunctiva ENT: Normal External Ears, Nose and Mouth. Neck: Full range of motion. No meningismus. Resp: Scattered rales bilaterally Cardio: Regular rate and rhythm, no murmurs Abd: Soft, non tender, non distended. Normal bowel sounds Skin: No petechiae or rashes Back: No midline or flank tenderness Ext: No cyanosis, or edema Neur: Awake and alert Psych: Normal Mood and Affect Result Diagram: 05/02/19 0112 05/02/19 0112 Results 24 hrs Laboratory Tests Test 05/02/19 01:12 White Blood Count 8.8 10^3/ul Red Blood Count 4.49 10^6/ul Hemoglobin 15.2 g/dl Hematocrit 46.2 % Mean Corpuscular Volume 102.9 fl Mean Corpuscular Hemoglobin 33.9 pg Mean Corpuscular Hemoglobin Concent 32.9 g/dl Red Cell Distribution Width 14.6 % Platelet Count 252 10^3/UL Mean Platelet Volume 9.6 fl Immature Granulocytes % 0.500 % Neutrophils % 81.2 % Lymphocytes % 9.4 % Monocytes % 7.7 % Eosinophils % 0.7 % Basophils % 0.5 % Nucleated Red Blood Cells % 0.0 /100WBC Immature Granulocytes # 0.040 10^3/ul Neutrophils # 7.1 10^3/ul Lymphocytes # 0.8 10^3/ul Monocytes # 0.7 10^3/ul Eosinophils # 0.1 10^3/ul Basophils # 0.0 10^3/ul Nucleated Red Blood Cells # 0.0 10^3/ul Sodium Level 143 mmol/L Potassium Level 3.6 mmol/L Chloride Level 102 mmol/L Carbon Dioxide Level 30 mmol/L Anion Gap 11 Blood Urea Nitrogen 9 mg/dl Creatinine 0.97 mg/dl Est Glomerular Filtrat Rate mL/min > 60 mL/min Glucose Level 123 mg/dl Calcium Level 9.2 mg/dl Total Bilirubin 0.9 mg/dl Direct Bilirubin 0.00 mg/dl Indirect Bilirubin 0.9 mg/dl Aspartate Amino Transf (AST/SGOT) 52 IU/L Alanine Aminotransferase (ALT/SGPT) 39 IU/L Alkaline Phosphatase 121 IU/L Troponin I 0.065 ng/ml B-Type Natriuretic Peptide 1800 PG/ML Total Protein 7.7 g/dl Albumin 4.3 g/dl Globulin 3.40 g/dl Albumin/Globulin Ratio 1.26 Current Medications Medications Dose Sig/Mic Start Time Status Last (Trade) Ordered Route PRN Stop Time Admin Dose Reason Admin Ondansetron 4 mg ER BRIDGE 05/02/19 HCl (Zofran PRN IV 03:00 Inj) NAUSEA/VOMITI 05/03/19 02:59 NG 650 mg ER BRIDGE 05/02/19 Acetaminophen PRN PO 03:00 (Tylenol .MILD PAIN 05/03/19 02:59 Tab) 1-3 OR TEMP Procedures/MDM EKG: Rate/Rhythm: Normal Sinus Rhythm QRS, ST, T-waves: No changes consistent w/ acute ischemia Impression: No evidence of ischemia or arrhythmia Chest X-ray 1V Interpreted by me: Soft Tissue: No acute abnorm alities Bones: No acute abnormalities Mediastinum/Cardiac Silhouette/Lungs: Increased interstitial fluid markings. Impression: CHF Patient's heart failure symptoms is concerning for acute decompensation and will require inpatient workup and monitoring. Further w/u for ischemia, arrhythmia, PE or dissection will be deferred to the inpatient team. Accepting Care Team: Current data and ongoing care discussed. Time: 2 AM Primary Provider: Hospitalist Consulting: Deferred to inpatient team Outstanding Data: none Departure Diagnosis: Primary Impression: Congestive heart failure Heart failure type: unspecified Heart failure chronicity: unspecified Qualified Codes: I50.9 - Heart failure, unspecified Condition: Serious SARA KWOK May 02, 2019 02:48
[2019-05-02] MEDS ORDERED: ONDANSETRON 4 MG INJ IV PRN ×2 (03:00→06:00)
[2019-05-02] MEDS ORDERED: ACETAMINOPHEN 325 MG TAB PO PRN ×2 (03:00→06:00)
[2019-05-02 04:32] VITALS: BP 142/95; PULSE 116; RESP 18
[2019-05-02 05:30] VITALS: Ht 167.6 cm; Wt 74.8 kg
[2019-05-02] MEDS ORDERED: IPRATROPIUM (NEB) 0.5 MG/2.5 ML AMP NEB PRN (06:00)
[2019-05-02] MEDS ORDERED: NITROGLYCERIN (SL) 0.4 MG TAB SL PRN (06:00)
[2019-05-02] MEDS ORDERED: NACL 0.9% 3 ML SYG IV SCH (06:00)
--- NOTE | 2019-05-02 06:51 | HP ---
Date/Time of Note Date/Time of Note DATE: 05/02/19 TIME: 06:47 Assessment/Plan VTE Prophylaxis Pharmacological prophylaxis: heparin Lines/Catheters IV Catheter Type (from Nrs): Saline Lock Assessment/Plan Assessment/Plan 1. Sinus tachycardia -Patient presented with feeling of palpitation. -This is likely from methamphetamine abuse. Patient also with a history of cardiomyopathy with EF of 30% -Monitor in telemetry unit -Trend troponin -Check TSH -Cardiology consult 2. Cardiomyopathy with a EF of 30% -Continue ACEI, BB and Lasix Result Diagram: 05/02/19 0112 05/02/19 0112 Results 24hrs Laboratory Tests Test 05/02/19 01:12 White Blood Count 8.8 # Red Blood Count 4.49 L Hemoglobin 15.2 Hematocrit 46.2 Mean Corpuscular Volume 102.9 H Mean Corpuscular Hemoglobin 33.9 H Mean Corpuscular Hemoglobin Concent 32.9 Red Cell Distribution Width 14.6 H Platelet Count 252 Mean Platelet Volume 9.6 Immature Granulocytes % 0.500 H Neutrophils % 81.2 H Lymphocytes % 9.4 L Monocytes % 7.7 Eosinophils % 0.7 Basophils % 0.5 Nucleated Red Blood Cells % 0.0 Immature Granulocytes # 0.040 H Neutrophils # 7.1 Lymphocytes # 0.8 Monocytes # 0.7 Eosinophils # 0.1 Basophils # 0.0 Nucleated Red Blood Cells # 0.0 Sodium Level 143 Potassium Level 3.6 Chloride Level 102 Carbon Dioxide Level 30 Anion Gap 11 Blood Urea Nitrogen 9 Creatinine 0.97 Est Glomerular Filtrat Rate mL/min > 60 Glucose Level 123 Calcium Level 9.2 Total Bilirubin 0.9 Direct Bilirubin 0.00 Indirect Bilirubin 0.9 Aspartate Amino Transf (AST/SGOT) 52 H Alanine Aminotransferase (ALT/SGPT) 39 Alkaline Phosphatase 121 Troponin I 0.065 B-Type Natriuretic Peptide 1800 H Total Protein 7.7 Albumin 4.3 Globulin 3.40 H Albumin/Globulin Ratio 1.26 HPI/ROS Admit Date/Time Admit Date/Time May 02, 2019 at 02:32 Hx of Present Illness Patient is a 34-year-old male with a history of amphetamine abuse, card iomyopathy with systolic dysfunction with EF of 30% presented to ER complaining of palpitation and diaphoresis. He said he smoked meth and shortly after he started having palpitation and diaphoresis. Denies any acute onset shortness of breath or chest pain. When he presented to the ER, his heart rate was 127. EKG without ST elevation or depression. First troponin negative. BNP 1800. Chest x-ray showed marked cardiomegaly without evidence of CHF. PMH/Family/Social Past Medical History Medical History: other (See HPI) Medications Current Medications IV Flush (NS 3 ml) 3 ml PER PROTOCOL IV ; Start 05/02/19 at 06:00 Ondansetron HCl (Zofran Inj) 4 mg Q6H PRN IV NAUSEA/VOMITING; Start 05/02/19 at 06:00 Aspirin (Aspirin) 81 mg DAILY PO ; Start 05/02/19 at 09:00 Nitroglycerin (Nitroglycerin (Sl Tab) 0.4 Mg) 1 tab Q5M PRN SL .CHEST PAIN; Start 05/02/19 at 06:00 Acetaminophen (Tylenol Tab) 650 mg Q6H PRN PO .PAIN 1-3 OR TEMP; Start 05/02/19 at 06:00 Enoxaparin Sodium (Lovenox) 40 mg DAILY SC ; Start 05/02/19 at 09:00 Ipratropium [place] (Atrovent 0.02% (Neb)) 0.5 mg Q2H RESP THERAPY PRN NEB TRAVIS RTNESS OF BREATH; Start 05/02/19 at 06:00 Benazepril HCl (Lotensin) 20 mg DAILY PO ; Start 05/02/19 at 09:00 Carvedilol (Coreg) 25 mg BID PO ; Start 05/02/19 at 09:00 Furosemide (Lasix) 80 mg DAILY PO ; Start 05/02/19 at 09:00 Coded Allergies: No Known Allergy (Unverified , 12/11/18) Past Surgical History Past Surgical Hx: other (See HPI) Family History Significant Family History: no pertinent family hx Social History Alcohol Use: none Smoking Status: Former smoker Drug Use: none Exam/Review of Systems Vital Signs Vitals Vital Signs Date Temp Pulse Resp B/P (MAP) Pulse Ox O2 O2 Flow FiO2 Time Delivery Rate 05/02/19 97.7 116 18 142/95 96 04:32 (111) 05/02/19 Room Air 04:01 Exam Constitutional: alert, oriented, well developed Head: normocephalic, atraumatic, other (Diaphoresis noted on the forehead) Eyes: PERRL Respiratory: clear to auscultation, normal air movement Cardiovascular: other (Tachycardic regular rhythm) Gastrointestinal: soft, non-tender Extremities: normal pulses SARA BOOTH MD May 02, 2019 06:51
[2019-05-02 07:40] VITALS: BP 153/97; PULSE 102; RESP 16
[2019-05-02] MEDS: ASPIRIN 81 MG TAB PO SCH (08:42)
[2019-05-02] MEDS: BENAZEPRIL 20 MG TAB PO SCH (08:43)
[2019-05-02] MEDS: ENOXAPARIN 40 MG/0.4 ML SYG SC SCH (08:49)
[2019-05-02] MEDS ORDERED: FUROSEMIDE 40 MG TAB PO SCH (09:00)
[2019-05-02] MEDS ORDERED: POTASSIUM CHLORIDE (SR) 20 MEQ TAB PO STA (11:28)
--- NOTE | 2019-05-02 11:28 | PN ---
Date/Time of Note Date/Time of Note DATE: 05/02/19 TIME: 11:18 Assessment/Plan VTE Prophylaxis Risk score (from Ns)>0 risk: 0 SCD applied (from Ns): No SCD contraindicated: other Pharmacological prophylaxis: LMWH Lines/Catheters IV [facility] Saline Lock Assessment/Plan Hospital Course SUBJECTIVE: Patient continues to feel palpitation intermittently. Denies any chest pain, he also reports intermittent swelling under her eyelids and cheeks. OBJECTIVE: Vital signs-see below PHYSICAL EXAM: Constitutional: Well-developed, adequately built, lying in bed comfortably. Psych: nl mood/affect, no complaints Head: atraumatic, normocephalic Eyes: nl conjunctiva, nl sclera ENMT: mucosa pink and moist, nl external ears & nose Neck: non-tender, supple Respiratory: clear to auscultation, normal air movement Cardiovascular: +JVD. Grade III/ murmur Left 2nd ICS,5th ICS. Gastrointestinal: non-tender, soft, bowel sounds active in all 4 quadrants. Musculoskeletal/extremities: Edema BLE-trace/resolving. nl extremities to inspection, motor strength equal bilaterally, no focal deficit. Normal pulses,no cyanosis Neurological: Alert oriented 3,nl speech, nl strength Skin: nl turgor ASSESSMENT/PLAN: 33-year-old male with cardiomyopathy,HF, MVR, meth abuse, presented with palpitations... Palpitations -Telemetry shows sinus tachycardia. Likely palpitation is secondary to recent meth use. -Continue beta-blockers. Advised on cessation. -Monitor electrolytes levels closely and keep K above 4.0, mag about 2.0. Cardiomyopathy with the last known ejection fraction 30% -Continue home medications Acute on Chronic systolic+diastolic congestive heart failure -Continue Lasix (change to iv) , BB/JESSICA inhibitors Mitral valve regurgitation -f/u cards recs Current meth abuse -Cessation advised -SW f/u DVT prophylaxis:Lovenox PUD prophylaxis: Not indicated CODE STATUS: Full code Diet: Regular diet. Disposition: Follow-up cardiology recommendations. Continue telemetry Patient was seen in collaboration with Dr. Gray Result Diagram: 05/02/1911105/02/19 0112 Results 24hrs Laboratory Tests Test 05/02/19 01:12 05/02/19 05:52 White Blood Count 8.8 # Red Blood Count 4.49 L Hemoglobin 15.2 Hematocrit 46.2 Mean Corpuscular Volume 102.9 H Mean Corpuscular Hemoglobin 33.9 H Mean Corpuscular Hemoglobin Concent 32.9 Red Cell Distribution Width 14.6 H Platelet Count 252 Mean Platelet Volume 9.6 Immature Granulocytes % 0.500 H Neutrophils % 81.2 H Lymphocytes % 9.4 L Monocytes % 7.7 Eosinophils % 0.7 Basophils % 0.5 Nucleated Red Blood Cells % 0.0 Immature Granulocytes # 0.040 H Neutrophils # 7.1 Lymphocytes # 0.8 Monocytes # 0.7 Eosinophils # 0.1 Basophils # 0.0 Nucleated Red Blood Cells # 0.0 Sodium Level 143 Potassium Level 3.6 Chloride Level 102 Carbon Dioxide Level 30 Anion Gap 11 Blood Urea Nitrogen 9 Creatinine 0.97 Est Glomerular Filtrat Rate mL/min > 60 Glucose Level 123 Calcium Level 9.2 Total Bilirubin 0.9 Direct Bilirubin 0.00 Indirect Bilirubin 0.9 Aspartate Amino Transf (AST/SGOT) 52 H Alanine Aminotransferase (ALT/SGPT) 39 Alkaline Phosphatase 121 Troponin I 0.065 0.065 B-Type Natriuretic Peptide 1800 H Total Protein 7.7 Albumin 4.3 Globulin 3.40 H Albumin/Globulin Ratio 1.26 Creatine Kinase 209 H Creatine Kinase Index 1.0 Creatinine Kinase MB (Mass) 2.19 Exam/Review of Systems Exam Vitals Vital Signs Date Temp Pulse Resp B/P (MAP) Pulse Ox O2 O2 Flow FiO2 Time Delivery Rate 05/02/19 98.5 102 16 153/97 96 07:40 (115) 05/02/19 Room Air 04:01 Results Results 24hrs Laboratory Tests Test 05/02/19 01:12 05/02/19 05:52 White Blood Count 8.8 # Red Blood Count 4.49 L Hemoglobin 15.2 Hematocrit 46.2 Mean Corpuscular Volume 102.9 H Mean Corpuscular Hemoglobin 33.9 H Mean Corpuscular Hemoglobin Concent 32.9 Red Cell Distribution Width 14.6 H Platelet Count 252 Mean Platelet Volume 9.6 Immature Granulocytes % 0.500 H Neutrophils % 81.2 H Lymphocytes % 9.4 L Monocytes % 7.7 Eosinophils % 0.7 Basophils % 0.5 Nucleated Red Blood Cells % 0.0 Immature Granulocytes # 0.040 H Neutrophils # 7.1 Lymphocytes # 0.8 Monocytes # 0.7 Eosinophils # 0.1 Basophils # 0.0 Nucleated Red Blood Cells # 0.0 Sodium Level 143 Potassium Level 3.6 Chloride Level 102 Carbon Dioxide Level 30 Anion Gap 11 Blood Urea Nitrogen 9 Creatinine 0.97 Est Glomerular Filtrat Rate mL/min > 60 Glucose Level 123 Calcium Level 9.2 Total Bilirubin 0.9 Direct Bilirubin 0.00 Indirect Bilirubin 0.9 Aspartate Amino Transf (AST/SGOT) 52 H Alanine Aminotransferase (ALT/SGPT) 39 Alkaline Phosphatase 121 Troponin I 0.065 0.065 B-Type Natriuretic Peptide 1800 H Total Protein 7.7 Albumin 4.3 Globulin 3.40 H Albumin/Globulin Ratio 1.26 Creatine Kinase 209 H Creatine Kinase Index 1.0 Creatinine Kinase MB (Mass) 2.19 Medications Medication Current Medications IV Flush (NS 3 ml) 3 ml PER PROTOCOL IV ; Start 05/02/19 at 06:00 Ondansetron HCl (Zofran Inj) 4 mg Q6H PRN IV NAUSEA/VOMITING; Start 05/02/19 at 06:00 Aspirin (Aspirin) 81 mg DAILY PO Last administered on 05/02/19at 08:42; Admin Dose 81 MG; Start 05/02/19 at 09:00 Nitroglycerin (Nitroglycerin (Sl Tab) 0.4 Mg) 1 tab Q5M PRN SL .CHEST PAIN; Start 05/02/19 at 06:00 Acetaminophen (Tylenol Tab) 650 mg Q6H PRN PO .PAIN 1-3 OR TEMP; Start 05/02/19 at 06:00 Enoxaparin Sodium (Lovenox) 40 mg DAILY SC Last administered on 05/02/19at 08:49; Admin Dose 40 MG; Start 05/02/19 at 09:00 Ipratropium [place] (Atrovent 0.02% (Neb)) 0.5 mg Q2H RESP THERAPY PRN NEB SHORTNESS OF BREATH; Start 05/02/19 at 06:00 Benazepril HCl (Lotensin) 20 mg DAILY PO Last administered on 05/02/19at 08:43; Admin Dose 20 MG; Start 05/02/19 at 09:00 Carvedilol (Coreg) 25 mg BID PO Last administered on 05/02/19at 08:43; Admin Dose 25 MG; Start 05/02/19 at 09:00 Furosemide (Lasix) 80 mg DAILY PO Last administered on 05/02/19at 08:42; Admin Dose 80 MG; Start 05/02/19 at 09:00 SIVAN DENNIS NP May 02, 2019 11:28
[2019-05-02 11:40] VITALS: BP 111/70; PULSE 89; RESP 16
--- NOTE | 2019-05-02 14:16 | CONS ---
Assessment/Plan Assessment/Plan Hospital Course (Demo Recall) Acute on chronic systolic failure: decompensated on exam with JVP at angle of jaw Sinus tachycardia: due to combination of meth use and ADHF. resolved Nonischemic cardiomyopathy: EF 30%, presumed meth related. Likely significant MR as well based on exam Methamphetamine abuse -increase to lasix 60mg q8h -theoretically BB can cause hypertensive crisis in the setting of meth use but his BP is actually better now and he takes it chronically even with ongoing meth use so ok to continue -coreg 25mg BID -benazepril 20mg Consultation Date/Type/Reason Admit Date/Time May 02, 2019 at 02:32 Date of Consultation: May 02, 2019 Type of Consult Cardiology Reason for Consultation palpitations, tachycardia Requesting Provider: SIVAN DENNIS NP Date/Time of Note DATE: 05/02/19 TIME: 14:10 Hx of Present Illness 34 yo M with a h/o methamphetamine abuse, nonischemic cardiomyopathy with EF 30%, who presented with palpitations after meth use. He was tachycardic in the 120s on admission. Since then he has improved and is no longer tachycardic. According to the pt he uses meth once per week but this is questionable. He has mild SOB over the past 2 days as well and notes that he drank alot of water over the past 3 days as it was hot. He states that he is compliant with coreg, benazepril, lasix. Has not made much urine today. No chest pain. Has orthopnea. per hPI Past Medical History per hPI Home Meds Reported Medications Furosemide* (Furosemide*) 80 Mg Tablet, 80 MG PO DAILY, #30 TAB 05/02/19 Carvedilol* (Carvedilol*) 25 Mg Tablet, 25 MG PO BID, #60 TAB 08/14/18 Benazepril Hcl* (Benazepril Hcl*) 20 Mg Tablet, 20 MG PO DAILY, #30 TAB 08/14/18 Discontinued Scripts Furosemide* (Lasix*) 20 Mg Tablet, 20 MG PO DAILY, #30 TAB Prov:SIVAN DENNIS NP 01/02/19 Furosemide* (Furosemide*) 40 Mg Tablet, 40 MG PO DAILY, #30 TAB Total daily dose should be 60 mg. patient to take 40 mg tablet and 20 mg tablet to total 60 mg. If not, patient needs to take three 20 mg pills. Prov:SIVAN DENNIS V. [employer] SET UP OPERATOR 01/02/19 Medications Current Medications IV Flush (NS 3 ml) 3 ml PER PROTOCOL IV ; Start 05/02/19 at 06:00 Ondansetron HCl (Zofran Inj) 4 mg Q6H PRN IV NAUSEA/VOMITING; Start 05/02/19 at 06:00 Aspirin (Aspirin) 81 mg DAILY PO Last administered on 05/02/19at 08:42; Admin Dose 81 MG; Start 05/02/19 at 09:00 Nitroglycerin (Nitroglycerin (Sl Tab) 0.4 Mg) 1 tab Q5M PRN SL .CHEST PAIN; Start 05/02/19 at 06:00 Acetaminophen (Tylenol Tab) 650 mg Q6H PRN PO .PAIN 1-3 OR TEMP; Start 05/02/19 at 06:00 Enoxaparin Sodium (Lovenox) 40 mg DAILY SC Last administered on 05/02/19at 08 :49; Admin Dose 40 MG; Start 05/02/19 at 09:00 Ipratropium [place] (Atrovent 0.02% (Neb)) 0.5 mg Q2H RESP THERAPY PRN NEB SHORTNESS OF BREATH; Start 05/02/19 at 06:00 Benazepril HCl (Lotensin) 20 mg DAILY PO Last administered on 05/02/19at 08:43; Admin Dose 20 MG; Start 05/02/19 at 09:00 Carvedilol (Coreg) 25 mg BID PO Last administered on 05/02/19at 08:43; Admin Dose 25 MG; Start 05/02/19 at 09:00 Furosemide (Lasix) 80 mg DAILY PO Last administered on 05/02/19at 08:42; Admin Dose 80 MG; Start 05/02/19 at 09:00; Status Hold Furosemide (Lasix) 40 mg BID DIURETICS IV ; Start 05/02/19 at 18:00 Allergies: Coded Allergies: No Known Allergy (Unverified , 12/11/18) Past Surgical History Past Surgical Hx: other (See HPI) Social History Alcohol Use: none Smoking Status: Former smoker Drug Use: none Exam/Review of Systems Vital Signs Vitals Vital Signs Date Temp Pulse Resp B/P (MAP) Pulse Ox O2 O2 Flow FiO2 Time Delivery Rate 05/02/19 98.4 89 16 111/70 96 11:40 (84) 05/02/19 Room Air 04:01 Exam Constitutional: alert, oriented Psych: no complaints, nl mood/affect Head: normocephalic, atraumatic Neck: jvd (angle of jaw) Respiratory: crackles/rales (at bases); No clear to auscultation Cardiovascular: regular rate and rhythm, edema (trace), systolic murmur (3/6 holosystolic murmur at apex) Gastrointestinal: soft, non-tender; No distended Extremities: normal pulses Neurological: nl mental status, nl speech Labs Result Diagram: 05/02/19 0112 05/02/19 0112 Results 24hrs Laboratory Tests Test 05/02/19 01:12 05/02/19 05:52 05/02/19 11:13 White Blood Count 8.8 # Red Blood Count 4.49 L Hemoglobin 15.2 Hematocrit 46.2 Mean Corpuscular Volume 102.9 H Mean Corpuscular Hemoglobin 33.9 H Mean Corpuscular Hemoglobin Concent 32.9 Red Cell Distribution Width 14.6 H Platelet Count 252 Mean Platelet Volume 9.6 Immature Granulocytes % 0.500 H Neutrophils % 81.2 H Lymphocytes % 9.4 L Monocytes % 7.7 Eosinophils % 0.7 Basophils % 0.5 Nucleated Red Blood Cells % 0.0 Immature Granulocytes # 0.040 H Neutrophils # 7.1 Lymphocytes # 0.8 Monocytes # 0.7 Eosinophils # 0.1 Basophils # 0.0 Nucleated Red Blood Cells # 0.0 Sodium Level 143 Potassium Level 3.6 Chloride Level 102 Carbon Dioxide Level 30 Anion Gap 11 Blood Urea Nitrogen 9 Creatinine 0.97 Est Glomerular Filtrat Rate mL/min > 60 Glucose Level 123 Calcium Level 9.2 Total Bilirubin 0.9 Direct Bilirubin 0.00 Indirect Bilirubin 0.9 Aspartate Amino Transf (AST/SGOT) 52 H Alanine Aminotransferase (ALT/SGPT) 39 Alkaline Phosphatase 121 Troponin I 0.065 0.065 0.056 B-Type Natriuretic Peptide 1800 H Total Protein 7.7 Albumin 4.3 Globulin 3.40 H Albumin/Globulin Ratio 1.26 Creatine Kinase 209 H 153 Creatine Kinase Index 1.0 1.2 Creatinine Kinase MB (Mass) 2.19 1.84 Magnesium Level 1.8 Thyroid Stimulating Hormone (TSH) 1.580 Imaging Imaging EKG: sinus tachycardia, no ST changes Medications Medications Current Medications IV Flush (NS 3 ml) 3 ml PER PROTOCOL IV ; Start 05/02/19 at 06:00 Ondansetron HCl (Zofran Inj) 4 mg Q6H PRN IV NAUSEA/VOMITING; Start 05/02/19 at 06:00 Aspirin (Aspirin) 81 mg DAILY PO Last administered on 05/02/19at 08:42; Admin Dose 81 MG; Start 05/02/19 at 09:00 Nitroglycerin (Nitroglycerin (Sl Tab) 0.4 Mg) 1 tab Q5M PRN SL .CHEST PAIN; Start 05/02/19 at 06:00 Acetaminophen (Tylenol Tab) 650 mg Q6H PRN PO .PAIN 1-3 OR TEMP; Start 05/02/19 at 06:00 Enoxaparin Sodium (Lovenox) 40 mg DAILY SC Last administered on 05/02/19at 08:49; Admin Dose 40 MG; Start 05/02/19 at 09:00 Ipratropium [place] (Atrovent 0.02% (Neb)) 0.5 mg Q2H RESP THERAPY PRN NEB SHORTNESS OF BREATH; Start 05/02/19 at 06:00 Benazepril HCl (Lotensin) 20 mg DAILY PO Last administered on 05/02/19at 08:43; Admin Dose 20 MG; Start 05/02/19 at 09:00 Carvedilol (Coreg) 25 mg BID PO Last administered on 05/02/19at 08:43; Admin Dose 25 MG; Start 05/02/19 at 09:00 Furosemide (Lasix) 80 mg DAILY PO Last administered on 05/02/19at 08:42; Admin Dose 80 MG; Start 05/02/19 at 09:00; Status Hold Furosemide (Lasix) 40 mg BID DIURETICS IV ; Start 05/02/19 at 18:00 LEI LEE May 02, 2019 14:16
[2019-05-02 15:42] VITALS: BP 114/60; PULSE 90; RESP 16
[2019-05-02] MEDS: FUROSEMIDE 40 MG INJ IV SCH ×2 (17:35→20:19)
[2019-05-02] MEDS ORDERED: FUROSEMIDE 40 MG INJ IV SCH (18:00)
[2019-05-02 20:00] VITALS: BP 117/62; PULSE 85; RESP 17
[2019-05-03 00:15] VITALS: BP 112/59; PULSE 84; RESP 15
[2019-05-03 03:22] VITALS: BP 114/62; PULSE 79; RESP 18
[2019-05-03] MEDS: FUROSEMIDE 40 MG INJ IV SCH ×2 (05:25→13:33)
[2019-05-03 07:45] VITALS: BP 117/66; PULSE 79; RESP 17
[2019-05-03] MEDS: ASPIRIN 81 MG TAB PO SCH (09:56)
[2019-05-03] MEDS: BENAZEPRIL 20 MG TAB PO SCH (09:56)
[2019-05-03] MEDS: ENOXAPARIN 40 MG/0.4 ML SYG SC SCH (09:58)
[2019-05-03] MEDS ORDERED: POTASSIUM CHLORIDE 20 MEQ POWDER FOR ORAL SOLN PO ONE (11:00)
[2019-05-03 11:16] VITALS: BP 110/64; PULSE 67; RESP 18
--- NOTE | 2019-05-03 11:26 | CONS ---
Assessment/Plan Assessment/Plan Hospital Course (Demo Recall) Acute on chronic systolic failure: Now euvolemic after agressive diuresis. Mild BUN elevation reflects this as well. No further symptoms Sinus tachycardia: due to combination of meth use and ADHF. resolved Nonischemic cardiomyopathy: EF 30%, presumed meth related. Likely significant MR as well based on exam Methamphetamine abuse -ok for d/c home with prior meds which I do not think he is compliant with anyway -lasix 80mg PO daily -coreg 25mg BID -benazepril 20mg Consultation Date/Type/Reason Admit Date/Time May 02, 2019 at 02:32 Initial Consult Date 05/02/19 Type of Consult Cardiology Requesting Provider: SIVAN DENNIS NP Date/Time of Note DATE: 05/03/19 TIME: 11:24 24 HR Interval Summary Free Text/Dictation Per pt he has had multiple urinations. No further SOB. Wants to go home. Exam/Review of Systems Vital Signs Vitals Vital Signs Date Temp Pulse Resp B/P (MAP) Pulse Ox O2 O2 Flow FiO2 Time Delivery Rate 05/03/19 98.5 67 18 110/64 98 11:16 (79) 05/02/19 Room Air 04:01 Intake and Output 05/02/19 05/02/19 05/03/19 1515:00 23:00 07:00 IntakeIntake Total 1790 ml 1000 ml OutputOutput Total 2150 ml 1050 ml BalanceBalance -360 ml -50 ml Exam Constitutional: alert, oriented Head: normocephalic, atraumatic Neck: supple; No jvd Respiratory: clear to auscultation; No crackles/rales Cardiovascular: regular rate and rhythm, systolic murmur (3/6 HSM); No edema Gastrointestinal: soft, non-tender; No distended Neurological: nl mental status, nl speech Labs Result Diagram: 05/03/19 0616 05/03/19 0616 Results 24hrs Laboratory Tests Test 05/02/19 20:35 05/03/19 06:16 Urine Opiates Screen Negative Urine Barbiturates Negative Urine Amphetamines Screen Positive Urine Benzodiazepines Screen Negative Urine Cocaine Screen Negative Urine Cannabinoids Negative White Blood Count 6.8 # Red Blood Count 4.56 L Hemoglobin 15.2 Hematocrit 46.7 Mean Corpuscular Volume 102.4 H Mean Corpuscular Hemoglobin 33.3 H Mean Corpuscular Hemoglobin Concent 32.5 Red Cell Distribution Width 14.6 H Platelet Count 259 Mean Platelet Volume 9.8 Immature Granulocytes % 0.400 Neutrophils % 65.2 Lymphocytes % 18.4 Monocytes % 11.6 H Eosinophils % 3.7 Basophils % 0.7 Nucleated Red Blood Cells % 0.0 Immature Granulocytes # 0.030 Neutrophils # 4.4 Lymphocytes # 1.3 Monocytes # 0.8 Eosinophils # 0.3 Basophils # 0.1 Nucleated Red Blood Cells # 0.0 Sodium Level 141 Potassium Level 3.5 Chloride Level 101 Carbon Dioxide Level 31 Anion Gap 9 Blood Urea Nitrogen 21 #H Creatinine 1.12 Est Glomerular Filtrat Rate mL/min > 60 Glucose Level 100 Hemoglobin A1c 5.5 Calcium Level 9.5 Magnesium Level 1.5 L Total Bilirubin 0.6 Direct Bilirubin 0.00 Indirect Bilirubin 0.6 Aspartate Amino Transf (AST/SGOT) 38 Alanine Aminotransferase (ALT/SGPT) 36 Alkaline Phosphatase 92 Total Protein 7.1 Albumin 4.0 Globulin 3.10 Albumin/Globulin Ratio 1.29 Triglycerides Level 59 Cholesterol Level 156 LDL Cholesterol, Calculated 94 HDL Cholesterol 50 Cholesterol/HDL Ratio 3.1 Thyroid Stimulating Hormone (TSH) 2.110 Medications Medications Current Medications IV Flush (NS 3 ml) 3 ml PER PROTOCOL IV ; Start 05/02/19 at 06:00 Ondansetron HCl (Zofran Inj) 4 mg Q6H PRN IV NAUSEA/VOMITING; Start 05/02/19 at 06:00 Aspirin (Aspirin) 81 mg DAILY PO Last administered on 05/03/19at 09:56; Admin Do se 81 MG; Start 05/02/19 at 09:00 Nitroglycerin (Nitroglycerin (Sl Tab) 0.4 Mg) 1 tab Q5M PRN SL .CHEST PAIN; Start 05/02/19 at 06:00 Acetaminophen (Tylenol Tab) 650 mg Q6H PRN PO .PAIN 1-3 OR TEMP; Start 05/02/19 at 06:00 Enoxaparin Sodium (Lovenox) 40 mg DAILY SC Last administered on 05/03/19at 09:58; Admin Dose 40 MG; Start 05/02/19 at 09:00 Ipratropium [place] (Atrovent 0.02% (Neb)) 0.5 mg Q2H RESP THERAPY PRN NEB SHORTNESS OF BREATH; Start 05/02/19 at 06:00 Benazepril HCl (Lotensin) 20 mg DAILY PO Last administered on 05/03/19at 09:56; Admin Dose 20 MG; Start 05/02/19 at 09:00 Carvedilol (Coreg) 25 mg BID PO Last administered on 05/03/19at 09:56; Admin Dose 25 MG; Start 05/02/19 at 09:00 Furosemide (Lasix) 80 mg DAILY PO Last administered on 05/02/19at 08:42; Admin Dose 80 MG; Start 05/02/19 at 09:00; Status Hold Furosemide (Lasix) 60 mg Q8 IV Last administered on 05/03/19 05:25; Admin Dose 60 MG; Start 05/02/19 at 14:45 Magnesium Sulfate 100 ml @ 25 mls/hr ONCE ONCE IVPB ; Start 05/03/19 at 12:00; Stop 05/03/19 at 15:59 LEI LEE May 03, 2019 11:26
--- NOTE | 2019-05-03 11:41 | PDOCDIS ---
Discharge Instructions CONDITION [id number] Patient Condition: [id number] Stable HOME CARE INSTRUCTIONS: [id number] Diet Instructions: [id number] Low Fat /Cholesterol FOLLOW UP/APPOINTMENTS Follow-up Plan Follow-up with primary care physician in 1 week. CESSATION OF SUBSTANCE ABUSE SIVAN DENNIS NP May 03, 2019 11:41
--- NOTE | 2019-05-03 11:45 | DS ---
Date/Time of Note Date/Time of Note DATE: 05/03/19 TIME: 11:43 Discharge Summary Admission/Discharge Info Admit Date/Time May 02, 2019 at 02:32 Discharge Date/Time Discharge Diagnosis Cardiomyopathy with the last known ejection fraction 30% Acute on Chronic systolic+diastolic congestive heart failure Mitral valve regurgitation Current meth abuse Patient Condition: Stable Procedures Hospital Course 33-year-old male with cardiomyopathy,HF, MVR, meth abuse, presented with palpitations... Patient was noted with sinus tachycardia. There was no other cardiac arrhyt hmias. His heart rate remained stable. He was continued on beta-blockers. He was given IV diuretics as it was noted with acute on chronic systolic heart failure with possible noncompliance with his medications. He was counseled on cessation of meth abuse. At this time, patient with stable labs and vital signs. Exam is clinically compensated. Patient is stable for outpatient follow-up. Approximately 60 m spent on coordinating the discharge on this patient. Patient is seen in collaboration with Dr. Gray. Home Meds Reported Medications Furosemide* (Furosemide*) 80 Mg Tablet, 80 MG PO DAILY, #30 TAB 05/02/19 Carvedilol* (Carvedilol*) 25 Mg Tablet, 25 MG PO BID, #60 TAB 08/14/18 Benazepril Hcl* (Benazepril Hcl*) 20 Mg Tablet, 20 MG PO DAILY, #30 TAB 08/14/18 Discontinued Scripts Furosemide* (Lasix*) 20 Mg Tablet, 20 MG PO DAILY, #30 TAB Prov:SIVAN DENNIS V. DIRECTOR [employer] 01/02/19 Furosemide* (Furosemide*) 40 Mg Tablet, 40 MG PO DAILY, #30 TAB Total daily dose should be 60 mg. patient to take 40 mg tablet and 20 mg tablet to total 60 mg. If not, patient needs to take three 20 mg pills. Prov:SIVAN DENNIS V. [employer] 01/02/19 Follow-up Plan Follow-up with primary care physician in 1 week. CESSATION OF SUBSTANCE ABUSE Primary Care Provider Care Physician No Primary Pending Labs Laboratory Tests Test 05/02/19 20:35 05/03/19 06:16 Urine Opiates Screen Negative (NEGATIVE) Urine Barbiturates Negative (NEGATIVE) Urine Amphetamines Screen Positive (NEGATIVE) Urine Benzodiazepines Screen Negative (NEGATIVE) Urine Cocaine Screen Negative (NEGATIVE) Urine Cannabinoids Negative (NEGATIVE) White Blood Count 6.8 10^3/ul (4.8-10.8) Red Blood Count 4.56 10^6/ul (4.70-6.10) Hemoglobin 15.2 g/dl (14.0-18.0) Hematocrit 46.7 % (42.0-52.0) Mean Corpuscular Volume 102.4 fl (82.0-101.0) Mean Corpuscular Hemoglobin 33.3 pg (29.0-33.0) Mean Corpuscular 32.5 g/dl (32.0-37.0) Hemoglobin Concent Red Cell Distribution Width 14.6 % (11.5-14.5) Platelet Count 259 10^3/UL (140-415) Mean Platelet Volume 9.8 fl (7.4-10.4) Immature Granulocytes % 0.400 % (0.001-0.429) Neutrophils % 65.2 % (39.0-77.0) Lymphocytes % 18.4 % (15.0-51.0) Monocytes % 11.6 % (0.0-11.0) Eosinophils % 3.7 % (0.0-7.0) Basophils % 0.7 % (0.0-2.0) Nucleated Red Blood Cells % 0.0 /100WBC (0.0-0.0) Immature Granulocytes # 0.030 10^3/ul (0.0-0.031) Neutrophils # 4.4 10^3/ul (1.6-7.5) Lymphocytes # 1.3 10^3/ul (0.8-2.9) Monocytes # 0.8 10^3/ul (0.3-0.9) Eosinophils # 0.3 10^3/ul (0.0-0.5) Basophils # 0.1 10^3/ul (0.0-0.1) Nucleated Red Blood Cells # 0.0 10^3/ul (0.0-0.0) Sodium Level 141 mmol/L (135-144) Potassium Level 3.5 mmol/L (3.5-5.1) Chloride Level 101 mmol/L (97-110) Carbon Dioxide Level 31 mmol/L (21-31) Anion Gap 9 (5-13) Blood Urea Nitrogen 21 mg/dl (7-20) Creatinine 1.12 mg/dl (0.61-1.24) Est Glomerular Filtrat > 60 mL/min (>60) Rate mL/min Glucose Level 100 mg/dl (70-220) Hemoglobin A1c 5.5 % (0-5.9) Calcium Level 9.5 mg/dl (8.4-10.2) Magnesium Level 1.5 mg/dl (1.7-2.5) Total Bilirubin 0.6 mg/dl (0.2-1.3) Direct Bilirubin 0.00 mg/dl (0.00-0.20) Indirect Bilirubin 0.6 mg/dl (0-1.1) Aspartate Amino 38 IU/L (15-46) Transf (AST/SGOT) Alanine 36 IU/L (13-69) Aminotransferase (ALT/SGPT) Alkaline Phosphatase 92 IU/L (42-121) Total Protein 7.1 g/dl (6.1-8.1) Albumin 4.0 g/dl (3.3-4.9) Globulin 3.10 g/dl (1.3-3.2) Albumin/Globulin Ratio 1.29 Triglycerides Level 59 mg/dl (0-149) Cholesterol Level 156 mg/dl (100-200) LDL Cholesterol, Calculated 94 mg/dl HDL Cholesterol 50 mg/dl (28-63) Cholesterol/HDL Ratio 3.1 RATIO Thyroid Stimulating 2.110 MIU/L (0.465-4.680) Hormone (TSH) SIVAN DENNIS V. DIRECTOR [employer] May 03, 2019 11:45
[2019-05-03] MEDS ORDERED: MAGNESIUM SULFATE 4 GM/100 ML 100 ML IVPB ONE (12:00)
[2019-05-03] MEDS ORDERED: WORK NOTE (14:35)
== END 2019-05-03 15:09 | disposition home or self-care (01) | DRG 293 ==
LOC: E/R 00:37 → TEL 02:32
PROVIDERS: ADMIT Internal Medicine; ATTEND Internal Medicine
DX: I11.0 Hypertensive heart disease with heart failure (principal); I42.9 Cardiomyopathy, unspecified; I50.43 Acute on chronic combined systolic (congestive) and diastolic (congestive) heart failure; I34.0 Nonrheumatic mitral (valve) insufficiency; F15.10 Other stimulant abuse, uncomplicated; Z87.891 Personal history of nicotine dependence
CPT/HCPCS: 71045; 80053; 80061; 80307; 82550; 82553; 83036; 83735; 83880; 84443; 84484; 85025; 93005; J1650; J1940